=== PATIENT | female | born 1965 | race Caucasian/White ===

== ENCOUNTER → 2020-06-09 08:22 | Outpatient (CLI) | payer OTHER, SELFPAY ==
[2020-05-13 09:06] VITALS: BMI 34.7
--- NOTE | 2020-06-09 08:23 | BI_ITS ---
MAMMOGRAPHY - BILATERAL SCREENING REASON FOR EXAM: Female, 54 years old. Routine annual screening examination. PERTINENT HISTORY: Personal history of breast cancer. Prior right lumpectomy and radiation treatment. Occasional right lateral breast tenderness. Mother with breast cancer. TECHNIQUE: Digital bilateral breast valeri (3D mammographic acquisition) in the CC and MLO projections. 2-D mediolateral oblique (MLO) and craniocaudad (CC) views of both breasts were obtained. CAD: Full Field Digital Mammography with Computer Added Detection was performed. COMPARISON: Comparison is made with prior examination dated 11/30/2018. FINDINGS: Breast Composition: There are scattered areas of fibroglandular density. There are no dominant masses or suspicious calcifications. The patient is status post lumpectomy in the deep upper lateral aspect of the right breast. Postoperative scarring and postsurgical changes are seen at that site. This is unchanged. No other significant abnormalities are identified. There has been no significant change since the prior study. BI/SCREEN MAMM (CAD) W/VALERI BILAT IMPRESSION: Stable bilateral screening mammogram. Yearly follow-up mammogram recommended. (A) ASSESSMENT CATEGORY: BIRADS Category 2: Benign. A letter regarding these results will be sent to the patient by the facility within 30 days. Approximately 10% of breast cancers are not detected by mammography. A normal mammogram should not delay biopsy of a clinically suspicious abnormality. [id number] Electronically Signed: Quentin Lopez, at 9:37 EST , Service support ,
== END ==
PROVIDERS: PCP Family Medicine; Referring Provider Internal Medicine Medical Oncology; Visit Provider Internal Medicine Medical Oncology
DX: Z12.31 Encounter for screening mammogram for malignant neoplasm of breast (principal); Z85.3 Personal history of malignant neoplasm of breast; Z80.3 Family history of malignant neoplasm of breast
CPT/HCPCS: 77063; 77067

== ENCOUNTER → 2020-12-24 17:22 | Outpatient (CLI) | payer OTHER, SELFPAY ==
[2020-05-13 09:06] VITALS: BMI 34.7
--- NOTE | 2020-12-24 17:23 | CT_ITS ---
STUDY: CT CHEST WITH CONTRAST REASON FOR EXAM: Female, 55 years old. chest wall mass, h/o DCIS RADIATION DOSAGE (If Supplied By Facility): CTDIvol = ( 14.78 ) mGy, DLP = ( 546.88 ) mGycm TECHNIQUE: Transaxial imaging was performed following intravenous administration of 100 CC ISOVUE 300. Individualized dose optimization techniques were used for this CT. COMPARISON: None. FINDINGS: Within the soft tissues of the right breast in the chest wall, there appears to be postsurgical changes with fat containing lesion measuring 3.7 x 2.9 cm. Metallic densities are noted suggesting surgical clips. The lungs are normal. There is no demonstrated pleural abnormality. Normal heart and pericardium. Normal mediastinum. Normal hilar regions. Normal enhanced pulmonary arteries. Normal aorta arch and descending thoracic aorta. Normal osseous structures. There is no demonstrated abnormality of the visualized upper abdomen. CT/Chest WITH Contrast IMPRESSION: Lungs are clear. No evidence of pulmonary embolism. Right breast mass as above, likely residual postsurgical change. Recommend clinical correlation and review of any recent mammography. If there is no recent mammography, recommend mammogram to further evaluate Electronically Signed: Nehemiah Monroe DO at 2:08 EDT Tel , Service support ,
== END ==
PROVIDERS: PCP Family Medicine; Referring Provider Nurse Practitioner Family; Visit Provider Nurse Practitioner Family
DX: R22.2 Localized swelling, mass and lump, trunk (principal)
CPT/HCPCS: 71260; Q9967

== ENCOUNTER → 2021-01-05 08:47 | Outpatient (CLI) | payer OTHER, SELFPAY ==
[2020-05-13 09:06] VITALS: BMI 34.7
--- NOTE | 2021-01-05 08:50 | US_ITS ---
STUDY: ULTRASOUND BREAST - RIGHT REASON FOR EXAM: Female, 55 years old. Palpable lump in the right breast. TECHNIQUE: Axial and longitudinal images of the RIGHT breast were performed with a high resolution ultrasound transducer. # OF IMAGES: 60 COMPARISON: Comparison is made with prior mammogram done earlier in the day. FINDINGS: RIGHT Breast: At the operative site, there is a 2.6 cm x 3.8 sided by 2.4 cm heterogeneous area of altered echotexture most likely representing post lumpectomy changes. US/Breast Limited Unilateral IMPRESSION: Findings suggestive of post lumpectomy changes at the operative site at the 10 to 11 o''clock position breast at 4 cm from nipple. ASSESSMENT CATEGORY: BIRADS Category 2: Benign. A letter regarding these results will be sent to the patient by the facility within 30 days. Electronically Signed: Quentin Lopez MD at 11:08 EDT , Service support ,
--- NOTE | 2021-01-05 08:50 | BI_ITS ---
MAMMOGRAPHY - BILATERAL DIAGNOSTIC REASON FOR EXAM: Female, 55 years old. Prior right lumpectomy with radiation and chemotherapy. Mass seen on prior CT scan of the thorax. PERTINENT HISTORY: Personal history of breast cancer. Mother with breast cancer. TECHNIQUE: Digital bilateral breast alfredo (3D mammographic acquisition) in the CC and MLO projections. 2-D mediolateral oblique (MLO) and craniocaudad (CC) views of both breasts were obtained. CAD: Full Field Digital Mammography with Computer Added Detection was performed. COMPARISON: Comparison is made with prior study dated 06/09/2020. FINDINGS: Breast Composition: There are scattered areas of fibroglandular density. There are no dominant masses or suspicious calcifications. The patient is status post lumpectomy in the deep upper outer aspect of the right breast. This corresponds to a 3.2 cm x 3.8 cm density most likely postsurgical in nature. This is unchanged. No other significant abnormalities are identified. There has been no significant change since the prior study. BI/DIAG MAMM W/CAD, BILAT IMPRESSION: Stable bilateral diagnostic mammogram. Correlation with sonogram of the postoperative site in the right breast is recommended. ASSESSMENT CATEGORY: BIRADS Category 0: Incomplete. Need additional imaging evaluation. A letter regarding these results will be sent to the patient by the facility within 30 days. Approximately 10% of breast cancers are not detected by mammography. A normal mammogram should not delay biopsy of a clinically suspicious abnormality. Electronically Signed: Quentin Lopez MD at 10:34 EDT , Service support ,
== END ==
PROVIDERS: PCP Family Medicine; Referring Provider Nurse Practitioner Family; Visit Provider Nurse Practitioner Family
DX: D05.11 Intraductal carcinoma in situ of right breast (principal); N63.10 Unspecified lump in the right breast, unspecified quadrant
CPT/HCPCS: 76642; 77062; 77066; G0279

== ENCOUNTER → 2021-02-02 08:52 | Outpatient (CLI) | payer OTHER, SELFPAY ==
[2021-01-12 14:37] VITALS: BMI 35.2
[2021-01-26 08:35] VITALS: BMI 35.2
--- NOTE | 2021-02-02 08:54 | NM_ITS ---
CLINICAL: 55-year-old female with history of carcinoma of the breast and current complaint of right clavicular mass formation. WHOLE BODY 99m Tc MDP RADIONUCLIDE BONE SCINTIGRAPHY COMPARISON: CT of the chest report 12/24/2020 FINDINGS: Following the intravenous administration of 26.0 mCi of 99m Tc MDP, whole body bone images reveal: 1. Increased radiopharmaceutical concentration is defined in the upper cervical spine posteriorly on the left, mid cervical spine posteriorly on the right, the acromioclavicular and sternoclavicular compartments of both shoulders-symmetric in presentation, lateral glenohumeral compartment of the right shoulder, fifth lumbar vertebra posteriorly on the left, knee articulations bilaterally, posterior compartment of both ankles. 2. The remaining skeletal structures are scintigraphically unremarkable with normal-appearing renal images and urinary bladder activity identified. NM/Bone Scan Whole Body IMPRESSION: 1. The increase in radiopharmaceutical concentration observed in the cervical and lumbar spine, bilateral shoulders, right and left knees, ankles bilaterally is most consistent with degenerative arthritis. 2. Meticulous attention paid to the right proximal-distal clavicle demonstrates no evidence of abnormal increased radiopharmaceutical concentration on the current examination. There is no definitive typical scintigraphic evidence of diffuse axial skeletal metastatic disease. Electronically Signed: Danial Anderson DO at 9:31 EDT Tel , Service support ,
== END ==
PROVIDERS: PCP Family Medicine; Referring Provider Internal Medicine Medical Oncology; Visit Provider Internal Medicine Medical Oncology
DX: R22.2 Localized swelling, mass and lump, trunk (principal); D05.11 Intraductal carcinoma in situ of right breast
CPT/HCPCS: 78306; A9503

== ENCOUNTER → 2021-06-10 08:12 | Outpatient (CLI) | payer OTHER, SELFPAY ==
--- NOTE | 2021-06-10 08:13 | BI_ITS ---
MAMMOGRAPHY - BILATERAL SCREENING REASON FOR EXAM: Female, 55 years old. Routine annual screening examination. PERTINENT HISTORY: Personal history of breast cancer. Prior right lumpectomy with radiation therapy. Mother with breast cancer. TECHNIQUE: Digital bilateral breast valeri (3D mammographic acquisition) in the CC and MLO projections. 2-D mediolateral oblique (MLO) and craniocaudad (CC) views of both breasts were obtained. CAD: Full Field Digital Mammography with Computer Added Detection was performed. COMPARISON: Comparison is made with prior study dated 01/05/2021 and 06/09/2020. FINDINGS: Breast Composition: There are scattered areas of fibroglandular density. There are no dominant masses or suspicious calcifications. Once again, the patient is status post lumpectomy in the deep upper lateral aspect of the right breast. Postsurgical changes are seen. The previously seen nodule at the biopsy site has become less dense and has decreased slightly in size presently measuring 3.3 cm x 3.3 cm. No other significant abnormalities are identified. There has been no significant change since the prior study. BI/SCRN MAMM (CAD)W/VALERI BILAT IMPRESSION: Stable bilateral screening mammogram. Yearly follow-up mammogram recommended. (A) ASSESSMENT CATEGORY: BIRADS Category 2: Benign. A letter regarding these results will be sent to the patient by the facility within 30 days. Approximately 10% of breast cancers are not detected by mammography. A normal mammogram should not delay biopsy of a clinically suspicious abnormality. [id number] Electronically Signed: Quentin Lopez MD at 9:17 EST , Service support ,
== END ==
PROVIDERS: PCP Family Medicine; Referring Provider Internal Medicine Medical Oncology; Visit Provider Internal Medicine Medical Oncology
DX: Z12.31 Encounter for screening mammogram for malignant neoplasm of breast (principal); Z85.3 Personal history of malignant neoplasm of breast; Z80.3 Family history of malignant neoplasm of breast
CPT/HCPCS: 77063; 77067

== ENCOUNTER → 2022-07-19 | Outpatient (CLI) | payer OTHER, SELFPAY ==
--- NOTE | 2022-07-19 10:24 | BI_ITS ---
MAMMOGRAPHY - BILATERAL SCREENING REASON FOR EXAM: Female, 56 years old. Routine annual screening examination. PERTINENT HISTORY: Personal history of breast cancer. Prior right lumpectomy with radiation treatment. Remote right needle breast biopsy. TECHNIQUE: Digital bilateral breast valeri (3D mammographic acquisition) in the CC and MLO projections. 2-D mediolateral oblique (MLO) and craniocaudad (CC) views of both breasts were obtained. CAD: Full Field Digital Mammography with Computer Added Detection was performed. COMPARISON: Comparison is made with prior study dated 06/10/2021 and 01/05/2021. FINDINGS: Breast Composition: There are scattered areas of fibroglandular density. The patient is status post laminectomy in the deep upper lateral aspect of the left breast. Surgical clips are seen at the operative site. Evidence of postoperative calcifications. These have progressed as compared to prior study. No other significant abnormalities are identified. BI/SCRN MAMM (CAD)W/VALERI BILAT IMPRESSION: Since prior study, the microcalcifications at the operative site have increased in number. This may represent postoperative calcification. Biopsy is recommended. ASSESSMENT CATEGORY: BIRADS Category 4: Suspicious - Biopsy Should Be Considered. A letter regarding these results will be sent to the patient by the facility within 30 days. Approximately 10% of breast cancers are not detected by mammography. A normal mammogram should not delay biopsy of a clinically suspicious abnormality. [id number] Electronically Signed: Quentin Lopez MD at 12:22 EST ,
== END | disposition home or self-care (01) ==
PROVIDERS: PCP Family Medicine; Visit Provider Internal Medicine Medical Oncology
DX: Z12.31 Encounter for screening mammogram for malignant neoplasm of breast (principal)
CPT/HCPCS: 77063; 77067

== ENCOUNTER → 2022-08-23 | Outpatient (CLI) | payer OTHER, SELFPAY ==
--- NOTE | 2022-08-23 11:45 | BRBX_PTH ---
PATIENT: IRMA MAX LOC: [facility] U#:[id number] AGE/SX: 56/F ROOM: RE08/23/[address]: Dr. Jez Gomez MD : 1965 BED: DIS: 08/23/2022 SPEC #: [id number] RECD: 08/23/22 12:19 STATUS: BETSY FER #: [id number] PHILLIP: 08/23/22 11:[address]: Jez Gomez DEPT: SURGICAL PATHOLOGY RECD BY: Marli Yu ENTERED: 08/23/22 12:39 SP TYPE: BREAST BX OTHR DR: Soheila Valentin MD Tissues: Right breast, NOS Procedures: Surgery Specimen Level IV HEADER OPERATION: Right stereotactic needle core biopsy PRE-OP DIAGNOSIS: Microcalcifications deep upper lateral breast TISSUE SUBMITTED: Right breast ISCHEMIC TIME: 2 minutes FIXATION TIME: 7.5 hours MICROSCOPIC DIAGNOSIS Right breast, microcalcifications deep upper lateral breast, stereotactic core biopsy: Fibrosis, fat necrosis, chronic inflammation and dystrophic calcifications. Negative for atypia or malignancy. See comment. HAYLEE:antonio 08/24/2022 COMMENT Correlation with clinical, radiologic findings and appropriate follow up are necessary. MICROSCOPIC DESCRIPTION Slides are reviewed. GROSS DESCRIPTION Received in fixative is one container labeled with the patient's name and designated right breast. The specimen consists of multiple elongated fragments of crowell-yellow fibroadipose tissue that in aggregate measure 4.0 x 3.0 x 0.3 cm. The entire specimen is submitted in two cassettes. / HAYLEE:antonio 08/23/2022 TC:5 CPT: 08337
--- NOTE | 2022-08-23 17:35 | PRO.PCM_ITS ---
Procedure Report Date of Procedure: 08/23/22 Procedure name: Stereotactic biopsy of right breast Indication: Micro and macro calcifications in the upper/central portion of right breast (within prior surgical cavity from lumpectomy 2018) After obtaining written and verbal consent and reviewing the details of the procedure, patient was positioned on the mammography table. Licensed Vocational Nurse image was performed to identify the location of microcalcifications. Stereo images were obtained at plus and -15 degrees. With these images, the biopsy site was targeted just below the area to be sampled. Then the biopsy site was anesthetized with local anesthetic both at the skin and deeply along the biopsy tract. A skin melinda was made with an 11 blade to accommodate the 8 Indonesian mammotome core needle. The needle was advanced into this opening and the needle was fired. Post-firing images confirmed that we are in the vicinity of the calcifications. We then obtained 12 biopsies along the 360 degrees about the needle insertion site. The cores were then x-rayed and we confirmed the presence of microcalcifications in in the first 4 cores and the second to last core. Satisfied with this result, I placed a coil clip (to distinguish it from the surgical clips located more deeply towards the chest wall) at the biopsy site and confirmed it presence with another x-ray. This concluded the biopsy and the patient was allowed to sit upright while manual pressure was applied externally. She tolerated the procedure well without any apparent complication. She was given post-- procedure care instructions and we will follow up once pathology has resulted. EBL: 10 mL Procedures Integumentary [id number]: [id number] Bx breast 1st lesion [facility]
== END | disposition home or self-care (01) ==
PROVIDERS: PCP Internal Medicine; Visit Provider Surgery
DX: N60.31 Fibrosclerosis of right breast (principal); R92.0 Mammographic microcalcification found on diagnostic imaging of breast
CPT/HCPCS: 19081; 88305; J7050

== ENCOUNTER 2022-10-28 12:17 | Emergency (ER) | payer OTHER, SELFPAY ==
[2022-10-28 12:17] VITALS: BP 167/115; PULSE 103; RESP 18; TEMP 36.4; O2SAT 97; BMI 36.3
--- NOTE | 2022-10-28 12:28 | EDS_ITS ---
HPI <JAYLIN Craig - Last Filed: 10/28/22 14:36> History of Present Illness Chief Complaint: Lower Extremity Injury Narrative Narrative: Patient presenting today due to left-sided lower back pain that radiates down the back of her left lower extremity that she has had for the past week. She said it has worsened over the past few days and she has numbness in her left toes. Patient states that she had a similar episode occur a few years ago but it was not this severe. She denies any injury to her back or to her left leg. She denies any saddle paresthesia, fever, bowel/bladder incontinence, weakness in her lower extremities. [facility] <JAYLIN Craig - Last Filed: 10/28/22 14:36> [facility] Medical History Breast cancer, right breast Breast mass, right Chest wall mass Fusion of spine, cervical region H/O thyroid nodule Home Medications atorvastatin 40 mg tablet 40 mg PO QHS 05/09/20 [History Last Taken Unknown] docusate sodium 100 mg capsule 100 mg PO DAILY 05/09/20 [History Last Taken Unknown] lisinopril 10 mg tablet 10 mg PO DAILY 05/09/20 [History Last Taken Unknown] metformin 500 mg tablet,extended release 24 hr 500 mg PO DAILY 05/09/20 [History Last Taken Unknown] buspirone 5 mg tablet 5 mg PO DAILY 08/02/22 [History Last Taken Unknown] cholecalciferol (vitamin D3) 125 mcg (5,000 unit) capsule 125 mcg PO DAILY 08/02/22 [History Last Taken Unknown] ferrous sulfate 325 mg (65 mg iron) tablet (Feosol) 325 mg PO Q OTHER DAY 08/02/22 [History Last Taken Unknown] vitamin B complex (B Complex-Vitamin B12 tablet) 1 tab PO DAILY 08/02/22 [History Last Taken Unknown] hydrocodone-acetaminophen 5-325mg 5mg-325mg 1 tab PO Q6H PRN PRN Pain 4 days #10 TABLETS 10/28/22 [Rx Last Taken Unknown] naproxen 500 mg tablet (Naprosyn) 500 mg PO BID PRN pain #20 tabs 10/28/22 [Rx Last Taken Unknown] oxycodone-acetaminophen 5 mg-325 mg tablet (Endocet) 1 tab PO Q8H PRN pain 4 days #10 tabs 10/28/22 [Rx Last Taken Unknown] Allergy/AdvReac Type Severity Reaction Status Date / Time shellfish derived Allergy Unknown Anaphylaxis Verified 08/02/22 09:36 adhesive tape AdvReac Unknown PT UNSURE Verified 08/02/22 09:36 OF REACTION Surgical History H/O partial mastectomy H/O total hysterectomy Social History Smoking Status: Never smoker alcohol intake: current substance use type: does not use ROS <JAYLIN Craig - Last Filed: 10/28/22 14:36> ROS ED Constitutional Constitutional ED: Denies chills or fever(s) Cardiovascular Cardiovascular: Denies chest pain Respiratory/Chest Respiratory/Chest: Denies cough or dyspnea Gastrointestinal Gastrointestinal: Denies abdominal pain, nausea or vomiting Genitourinary Genitourinary ED: Denies dysuria or hematuria Musculoskeletal Musculoskeletal: Reports back pain; Denies neck pain Integumentary Denies abscess, Abrasions or rash Neurologic Neurologic: Denies weakness Psychiatric Psychiatric: Denies anxiety, depression, suicidal ideation or suicidal thoughts EXAM <JAYLIN Craig - Last Filed: 10/28/22 14:36> Physical Exam Const Vital Signs: 10/28/22 12:17 Temperature 97.6 F L Temperature Source Temporal Pulse Rate 103 H Respiratory Rate 18 Blood Pressure 167/115 H Blood Pressure Mean 132 Pulse Ox 97 Oxygen Delivery Method Room Air Positive well nourished, well developed and no apparent distress General Appearance ED: well developed HEENT Reports normocephalic and head/scalp atraumatic Mouth ED: Yes moist mucous membranes normal Eyes PERRL and EOMs intact bilaterally Neck full ROM and supple Chest Wall inspection of chest normal Resp normal respiratory effort and clear to auscultation bilaterally Cardio regular rate and regular rhythm GI soft to palpation, non-tender, non-distended and no masses Back/Spine normal ROM and normal to inspection Extremity normal to inspection and full ROM Extremity Narrative: DP pulses in her lower extremities are 2+ and equal bilaterally, sensation intact to light touch in the lower extremities bilaterally. Neuro oriented x3, CN's II-XII intact bilaterally, moves all extremities, no focal motor deficits and no sensory deficits noted Sensorium / Orientation: awake and alert Motor Exam: strength 5/5 throughout Psych mental status grossly normal and thought process normal Skin no rashes or lesions noted and no wounds <Dr. Jermaine Eduardo DO - Last Filed: 10/28/22 21:54> Physical Exam Const Vital Signs: 10/28/22 12:17 Temperature 97.6 F L Temperature Source Temporal Pulse Rate 103 H Respiratory Rate 18 Blood Pressure 167/115 H Blood Pressure Mean 132 Pulse Ox 97 Oxygen Delivery Method Room Air MDM <JAYLIN Craig - Last Filed: 10/28/22 14:36> [facility] Narrative Medical decision making narrative: EpiduralPatient presenting today with symptoms of sciatica on the left side that she has had since Tuesday. She has had a previous episode in the past, but it was not this severe. She has not seen her PCP for this. She is well-appearing and in no acute distress. Her strength is intact in her upper and lower extremities, I have considered cauda equina syndrome and abscess, however, this is not likely given patient's examination and history. She is able to ambulate without difficulty. She was given Decadron here. She will be given pain control for home and is to follow-up with her PCP. Do not feel that any imaging is necessary as patient did not have any trauma to her back. She will be discharged home in stable condition and is comfortable with plan. She has been given return instructions. <Dr. Jermaine Eduardo DO - Last Filed: 10/28/22 21:54> [facility] Treatment and Re-Evaluation :: ED attending note: I evaluated the patient in conjunction with the TANESHA. I agree with his/her statements and above findings. I have personally performed a face to face assessment of the patient and have reviewed the TANESHA Note. I performed a substantive portion of the visit including all aspects of the following. I personally saw the patient performed chart review, physical exam, reviewed labs, imaging (if obtained), and formulated a treatment and management plan. 57-year-old female here with left-sided hip back pain. No injury. Patient denies any saddle anesthesia, urinary tension, bowel or bladder incontinence, lower extremity weakness, fever or IV drug use, no recent spinal manipulation or surgery, no recent urinary catheterization. Exam: Nursing triage notes reviewed, Vital signs reviewed Constitutional: please see mdm HENT: MMM Eyes: Pupils equal round and reactive to light, Extraocular muscles intact Neck: No stridor, no JVD, full neck ROM Lungs: Clear to auscultation, No wheezing or rales. No increased work of breathing, no conversational dyspnea, no accessory muscle use, no nasal flaring. No respiratory distress noted Heart: Regular rate and rhythm, No murmurs, No rubs and No gallops, 2+ distal pulses (radial, femoral, posterior tibial) in all extremities Abdomen: Soft, there is no tenderness, rigidity, rebound or guarding, no obvious peritoneal signs, no palpable pulsatile abdominal masses, no auscultated abdominal bruit : No CVAT Extremities: No edema Neuro: Intact sensation L1-S1 dermatomal distributions. Intact 5/5 strength in hip flexion (T12-L3). Knee extension (L2-L4). Ankle dorsiflexion (L4-L5). Ankle plantar flexion (S1). Great toe extension (L5). 2+ patellar and Achilles DTRs. Skin: No rash or lesions noted MDM/plan: Chief Complaint: Back pain External records reviewed: No recent advanced imaging of the axial skeleton noted I considered the following differential diagnosis: Epidural abscess, space- occupying region of spine, cauda equina, musculoskeletal back pain, lumbar radiculopathy The patient presented complaining of back pain. There was no history of recent fall or trauma. There was no evidence to support genitourinary etiology. There is also no evidence to suggest vascular pathology such as AAA dissection. No fevers or other evidence to suspect infectious processes, abscess, osteomyelitis etc. The patient?s neurological exam is normal with normal motor and sensory. There is no saddle paresthesias reported and no bowel or bladder incontinence or retention. I suspect the pain is mechanical in nature. Clinical suspicion, plan of care and management was discussed with the patient. The patient was instructed to follow up with their health care provider. The patient was also instructed to return if the pain worsened, changed, or developed weakness or bowel or bladder trouble. The patient agreed with plan. I completed a structured, evidence-based clinical evaluation to screen for acute non-traumatic spinal emergencies. The patient has a normal detailed neurologic exam and red flag historical factors were negative. The evidence indicates that the patient is very low risk for an acute spinal emergency and this is consistent with my clinical intuition. The risk of further workup is higher than the likelihood of the patient having a spinal epidural abscess or other dangerous emergency spinal condition. It is, therefore, in the patient?s best interest not to do additional emergent testing at this time. Shared Decision-Making I have discussed with the patient my clinical impression and the result of an evidence-based clinical evaluation to screen for spinal epidural abscess and other spinal emergencies, as well as the risk of further testing and hospitalization. The evidence shows that the risk for an acute spinal emergency is less than 1%. Although the risk of an acute spinal emergency has not been completely eliminated, the risks of further testing likely exceed any potential benefit, and the patient agrees with not pursuing further emergent evaluation for causes of back pain at this time. Factors affecting care: Breast cancer Social determinants of health: Never smoker History obtained from others: Consults: None Discharge Plan Triage Chief Complaint: Lower Extremity Injury ED Midlevel Provider: Saba Bear ED Provider: Jermaine Eduardo Dx/Rx/DC Orders Clinical Impression: Sciatica of left side Instructions: ED Sciatica Prescriptions: New naproxen [Naprosyn] 500 mg tablet 500 mg PO BID PRN (Reason: pain) Qty: 20 0RF hydrocodone-acetaminophen 5-325 mg tablet 1 tab PO Q6H PRN PRN (Reason: Pain) 4 Days Qty: 10 0RF oxycodone-acetaminophen [Endocet] 5-325 mg tablet 1 tab PO Q8H PRN (Reason: pain) 4 Days Qty: 10 0RF No Action buspirone 5 mg tablet 5 mg PO DAILY cholecalciferol (vitamin D3) 125 mcg (5,000 unit) capsule 125 mcg PO DAILY ferrous sulfate [Feosol] 325 mg (65 mg iron) tablet 325 mg PO Q OTHER DAY vitamin B complex [B Complex-Vitamin B12] Tablet 1 tab PO DAILY atorvastatin 40 MG tablet 40 mg PO QHS lisinopril 10 MG tablet 10 mg PO DAILY docusate sodium 100 MG capsule 100 mg PO DAILY metformin 500 MG tablet extended release 24 hr 500 mg PO DAILY Primary Care Provider: Soheila Valentin Referrals: Soheila Valentin MD [Primary Care Provider] - 3-5 Days Activity Restrictions/Additional Instructions: Please follow-up with your PCP and return for any worsening symptoms. Disposition Disposition: Home, Self Care Discharge Date/Time: 10/28/22 13:46
[2022-10-28] MEDS: dexAMETHasone 4 MG Tablet 6 MG PO (13:42)
== END 2022-10-28 13:46 | disposition home or self-care (01) ==
PROVIDERS: Emergency Provider Emergency Medicine; PCP Internal Medicine; Visit Provider Emergency Medicine
DX: M54.32 Sciatica, left side (principal); C50.911 Malignant neoplasm of unspecified site of right female breast; Z79.899 Other long term (current) drug therapy
CPT/HCPCS: 99283

== ENCOUNTER → 2023-07-20 | Outpatient (CLI) | payer OTHER, SELFPAY ==
--- NOTE | 2023-07-20 10:30 | BI_ITS ---
MAMMOGRAPHY - BILATERAL SCREENING REASON FOR EXAM: Female, 57 years old. Routine annual screening examination. PERTINENT HISTORY: Personal history of breast cancer. Prior right lumpectomy with radiation treatment and prior right stereotactic breast biopsy. Mother with breast cancer. TECHNIQUE: Digital bilateral breast valeri (3D mammographic acquisition) in the CC and MLO projections. 2-D mediolateral oblique (MLO) and craniocaudad (CC) views of both breasts were obtained. CAD: Full Field Digital Mammography with Computer Added Detection was performed. COMPARISON: Comparison is made with prior examination dated July 19, 2022 and June 10, 2021. FINDINGS: Breast Composition: There are scattered areas of fibroglandular density. There are no dominant masses or suspicious calcifications. Once again, the patient is status post lumpectomy in the deep upper lateral aspect of the right breast with resultant postoperative scarring. There is also evidence of a calcifications at the operative site in keeping with dystrophic calcification. No other significant abnormalities are identified. There has been no significant change since the prior study. BI/SCRN MAMM (CAD)W/VALERI BILAT IMPRESSION: Stable bilateral screening mammogram. Yearly follow-up mammogram recommended. (A) ASSESSMENT CATEGORY: BIRADS Category 2: Benign. A letter regarding these results will be sent to the patient by the facility within 30 days. Approximately 10% of breast cancers are not detected by mammography. A normal mammogram should not delay biopsy of a clinically suspicious abnormality. [id number] Electronically Signed: Quentin Lopez MD at 10:13 EST ,
--- OUTSIDE RECORDS SUMMARY | 2023-07-20 11:57 | XMS RPT_ITS | CCD ---
Author Name Unknown Address [id number] [place] [address] Organization [facility] Care Team Providers Care Supply Chain Development Manager Name Role Phone Unavailable Unavailable Unavailable SHARIF, JOSEPHINE E Unavailable Unavailable SHARIF, JOSEPHINE E Unavailable Unavailable NO, DOCTOR ON Unavailable Unavailable SHARIF, JOSEPHINE E Unavailable Unavailable NO, DOCTOR ON Unavailable Unavailable Tasha Bojorquez Unavailable Unavailable Tasha Bojorquez Unavailable Unavailable Longsdorf, June Barbara Unavailable Unavai lable Tasha Bojorquez Unavailable Unavailable Longsdorf, June Barbara Unavailable Unavai lable Pitkin, Franco A Unavailable Unavailable Pitkin, Franco A Unavailable Unavailable Longsdorf, June Unavailable Unavailable Longsdorf, June Unavailable Unavailable VLADISLAV KENT Unavailable Unavailable HARRELL, WENHUI Unavailable Unavailable HARRELL, WENHUI Unavailable Unavailable KATELÍAS PAULSONALD Unavailable Unavailable KATELÍAS PAULSONALD Unavailable Unavailable KATLORENE VLADISLAV Unavailable Unavailable Unavailable Primary Care Provider Unavailabl e Longsdorf, June Unavailable Unavailable Longsdorf, June A Unavailable Unavailab Candelaria León Unavailable Unavailable Longsdorf, June Unavailable Unavailable Monica Carrasco Unavailable Unavailable Longsdorf, June A Unavailable Unavailab June Saldaña Primary Care Provider Ruth June A Unavailable Unavailable Unavailable June Miranda MD Primary Care Provid er Soheila Tom MD Primary Care Provider Soheila Tom MD Unavailable Soheila Tom MD Primary Care Provider Vaishali MD, Soheila Unavailable Vaishali MD, Soheila Unavailable Vaishali MD, Soheila Primary Care Provider Vaishali , Soheila Unavailable VAISHALI, SOHEILA Referring Unavailable VAISHALI, SOHEILA Attending Unavailable VAISHALI, SOHEILA Primary Care Unavailable Alex ROWLAND, Koko Ledbetterste Unavailable [phone] DB YBARRA Attending Unavailable VAISHALI, SOHEILA Primary Care Unavailable VAISHALI, SOHEILA Attending Unavailable VAISHALI, SOHEILA Primary Care Unavailable VAISHALI, SOHEILA Attending Unavailable VAISHALI, SOHEILA Primary Care Unavailable VAISHALI, SOHEILA Attending Unavailable VAISHALI, SOHEILA Primary Care Unavailable BRUNICARDI, KOKO PADILLA Attending Unavail able VAISHALI, SOHEILA Primary Care Unavailable VAISHALI, SOHEILA Attending Unavailable VAISHALI, SOHEILA Primary Care Unavailable VAISHALI, SOHEILA Attending Unavailable VAISHALI, SOHEILA Primary Care Unavailable VAISHALI, SOHEILA Primary Care Unavailable BRUNICARDI, KOKO PADILLA Admitting Unavail able MAURO LEROY Attending Unavailable BRUNICARDI, KOKO PADILLA Referring Unavail able BRUNICARDI, KOKO PADILLA Referring Unavail able VAISHALI, SOHEILA Primary Care Unavailable PATOICARDI, KOKO PADILLA Admitting Unavail able SAURABH HOOVER Attending Unavailable BRUNICARDI, KOKO PADILLA Admitting Unavail able VAISHALI, SOHEILA Primary Care Unavailable AMBREEN MARVIN Attending Unavailable BRUNICARDI, KOKO PADILLA Referring Unavail able BRUNICARDI, KOKO PADILLA Admitting Unavail able VAISHALI, SOHEILA Primary Care Unavailable BRUNICARDI, KOKO PADILLA Referring Unavail able SAURABH HOOVER Attending Unavailable VAISHALI, SOHEILA Primary Care Unavailable GAVIN MCNEIL Attending Unavailable TEJAL HOLLAND Attending Unavailable BRUNICARDI, KOKO PADILLA Referring Unavail able VAISHALI, SOHEILA Primary Care Unavailable BRUNICARDI, KOKO PADILLA Admitting Unavail able LUPILLO LEMUS Referring Unavailable Allergies Allergy Classification Reported Allergen(s) Allergy Type Date of Onset Reaction(s) Facility Fish (8 sources) fish, unspecified; Translations: [Shellfish] Food Allergy Anaphylaxis [facility] nicole Work Phone: (7 sources) fish, unspecified allergy to substance Anaphylaxis [facility] Work Phone: (9 sources) Adhesive bandage; Translations: [Adhesive Bandages] drug allergy Unknown [facility] Work Phone: (5 sources) shellfish, unspecified allergy to substance Anaphylaxis [facility] Work Phone: (4 sources) shrimp, unspecified; Translations: [SHRIMP] allergy to substance 1 [facility] (20 sources) Shellfish; Translations: [SHELLFISH DERIVED] Propensity to adverse reactions to drug 0 Other (See Comments) [facility] (20 sources) shrimp allergenic extract Drug Allergy 1 Anaphylaxis [facility] (20 sources) Adhesive Tape-Silicones; Translations: [ADHESIVE TAPE-SILICONES] Propensity to adverse reactions to drug 0 [facility] (20 sources) Fish,Bora,Flax Oils-Om3,6,9no1 ; Translations: [FISH,BORA,FLAX OILS-OM3,6,9NO1 ] Propensity to adverse reactions to drug 1 [facility] (20 sources) Shellfish Containing Products; Translations: [SHELLFISH CONTAINING PRODUCTS] Propensity to adverse reactions to drug 0 [facility] Medications Current Medications Medication Drug Class(es) Dates Sig (Normalized) Sig (Original) [id number] 200 actuat albuterol 0.09 mg/actuat metered dose inhaler (20 sources) beta2-Adrenergic Agonist Start: 07-30-2020 take 2 puff(s) by inhalation every four hours as needed for wheezing albuterol (ProAir HFA) 90 mcg/actuation inhaler Inhale 2 (two) puffs every 4 (four) hours as needed for wheezing or shortness of breath . 6.7 g 0 07/30/2020 Active Completed/Discontinued Medications Medication Drug Class(es) Dates Sig (Normalized) Sig (Original) acetaminophen 325 mg oral tablet (1 source) Start: 07-28-2020 End: 07-30-2020 take 1 tablet by mouth every four hours as needed 650 mg, Oral, Every 4 hours PRN, mild pain, fever 100.4 F or greater, headaches, Starting Tue07/28/20 at 2050 albuterol 0.833 mg/ml / ipratropium bromide 0.167 mg/ml inhalant solution (1 source) Anticholinergic, beta2-Adrenergic Agonist Start: 07-28-2020 End: 07-30-2020 take 3 mL by inhalation every two hours as needed 3 mL, Inhalation, Every 2 hour PRN (RT), wheezing, Starting Tue07/28/20 at 2050 albuterol 90 mcg/actuation inhaler (1 source) End: 07-28-2020 albuterol 90 mcg/actuation inhaler Inhale . 0 07/28/2020 Discontinued (Error) ALPRAZolam 0.5 mg oral tablet (1 source) Benzodiazepine Start: 07-28-2020 End: 07-30-2020 take 0.5 mg by mouth three times daily as needed for anxiety 0.5 mg, Oral, 3 times daily PRN, anxiety, sleep, Starting Tue07/28/20 at 2050 azithromycin 250 mg oral tablet (1 source) Macrolide Antimicrobial Start: 07-04-2020 take 1 tablet by mouth once Azithromycin 250 MG Oral Tablet TAKE DIRECTED PER PACKAGE INSTRUCTIONS. Quantity: 1 Refills: 0 June Miranda MD Start : 04-Jul-2020 Active 6 Tablet Pack bisacodyl 5 mg delayed release oral tablet (1 source) Stimulant Laxative Start: 07-28-2020 End: 07-30-2020 take 5 mg by mouth once daily as needed for constipation 5 mg, Oral, Nightly PRN, constipation, Starting Tue07/28/20 at 2050 DO NOT CRUSH OR CHEW. Bupivacaine (2 sources) Amide Local Anesthetic Start: 07-06-2021 End: 07-06-2021 bupivacaine HCl (MARCAINE) 0.5 % (5 mg/mL) injection 1 mL carvedilol 12.5 mg oral tablet (1 source) alpha-Adrenergic Yaneli, beta-Adrenergic Yaneli End: 07-28-2020 take 1 tablet by mouth twice daily carvediloL (COREG) 12.5 MG tablet Take 12.5 mg by mouth 2 (two) times a day . 0 07/28/2020 Discontinued (Error) ciprofloxacin 500 mg oral tablet (1 source) Quinolone Antimicrobial Start: 06-26-2019 take 1 tablet by mouth twice daily Ciprofloxacin HCl - 500 MG Oral Tablet Take 1 tablet twice daily Quantity: 6 Refills: 0 June Miranda MD Start : 26-Jun-2019 Active Drug or medicament (substance) (3 sources) End: 09-07-2021 Problems Active Problems Problem Classification Problem Date Documented Da te Episodic/Chronic Anxiety disorders (20 sources) Anxiety; Translations: [Anxiety state, unspecified] Onset: 2 Chronic Aortic; peripheral; and visceral artery aneurysms (7 sources) Aneurysm of ascending aorta; Translations: [Dilatation of aorta] Chronic Cancer of breast (11 sources) Intraductal carcinoma in situ of breast; Translations: [Carcinoma in situ of breast] Chronic Cardiac and circulatory congenital anomalies (20 sources) Abnormality of aortic arch; 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] Onset: 1 07-29-2020 Chronic Diabetes mellitus without complication (5 sources) Type 2 diabetes mellitus; Translations: [Type 2 diabetes mellitus without complications] Onset: 1 07-28-2020 Chronic Diabetes mellitus without complication (9 sources) Prediabetes; Translations: [Other abnormal glucose] Episodic Disorders of lipid metabolism (20 sources) Hyperlipidemia; Translations: [Other and unspecified hyperlipidemia] Onset: 2 09-07-2021 Chronic Esophageal disorders (8 sources) Gastroesophageal reflux disease; Translations: [Esophageal reflux] Chronic Essential hypertension (20 sources) Hypertensive disorder; Translations: [Unspecified essential hypertension] Onset: 1 07-28-2020 Chronic Headache; including migraine (20 sources) Migraine; Translations: [Migraine, unspecified, without mention of intractable migraine without mention of status migrainosus] Onset: 2 09-07-2021 Chronic Malaise and fatigue (20 sources) Chronic fatigue syndrome; Translations: [Chronic fatigue, unspecified] Onset: 2 10-26-2021 Chronic Nutritional deficiencies (20 sources) Vitamin D deficiency; Translations: [Vitamin D deficiency, unspecified] Onset: 2 Chronic Osteoarthritis (11 sources) Osteoarthritis; Translations: [Osteoarthrosis, unspecified whether generalized or localized, site unspecified] Chronic Other acquired deformities (1 source) Spondylolisthesis, lumbar region; Translations: [Spondylolisthesis, lumbar region] Onset: 4 Episodic Other circulatory disease (2 sources) H/O: hypertension; Translations: [History of hypertension] Episodic Other connective tissue disease (2 sources) Pain in left foot; Translations: [Pain in left foot] Episodic Other connective tissue disease (2 sources) Trochanteric bursitis, left hip; Translations: [Trochanteric bursitis, left hip] Onset: 3 Episodic Other gastrointestinal disorders (3 sources) Personal history of other diseases of the digestive system; Translations: [History of gastroesophageal reflux (GERD)] Episodic Other non-traumatic joint disorders (3 sources) Decreased range of shoulder movement; Translations: [Decreased range of motion of right shoulder] Onset: 7 09-14-2016 Chronic Other nutritional; endocrine; and metabolic disorders (20 sources) Body mass index 30+ - obesity; Translations: [Body Mass Index 33.0-33.9, adult] Onset: 1 07-28-2020 Chronic Other nutritional; endocrine; and metabolic disorders (1 source) Obesity; Translations: [Obesity, unspecified] Chronic Other nutritional; endocrine; and metabolic disorders (20 sources) Disorder of carbohydrate metabolism; Translations: [Other disorders of intestinal carbohydrate absorption] Onset: 1 Chronic Other nutritional; endocrine; and metabolic disorders (3 sources) H/O: metabolic disorder; Translations: [History of high cholesterol] Episodic Other upper respiratory infections (1 source) Acute sinusitis; Translations: [Acute sinusitis] Episodic Paralysis (3 sources) Weakness of right arm; Translations: [Weakness of right arm] Onset: 7 09-14-2016 Residual codes; unclassified (20 sources) Obstructive sleep apnea syndrome; Translations: [Obstructive sleep apnea (adult)(pediatric)] 09-07-2021 Chronic Residual codes; unclassified (8 sources) Past history of procedure; Translations: [Other specified personal history presenting hazards to health] Episodic Past or Other Problems Problem Classification Problem Date Documented Da te Episodic/Chronic Nonmalignant breast conditions (11 sources) Mammographic calcification of breast; Translations: [Other (abnormal) findings on radiological examination of breast] Resolved: 08-05-2020 Episodic Other connective tissue disease (8 sources) Other symptoms and signs involving the musculoskeletal system; Translations: [Other musculoskeletal symptoms referable to limbs] Onset: 09-14-2016 09-14-2016 Episodic Other connective tissue disease (8 sources) Pain in toe; Translations: [Pain in joint, ankle and foot] Resolved: 05-11-2021 Episodic Other connective tissue disease (20 sources) Weakness of right arm; Translations: [Other symptoms and signs involving the musculoskeletal system] Onset: 09-14-2016 09-14-2016 Episodic Other connective tissue disease (11 sources) Muscle spasm of cervical muscle of neck; Translations: [Other muscle spasm] Onset: 09-01-2022 Episodic Other connective tissue disease (4 sources) Other muscle spasm; Translations: [Other muscle spasm] Onset: 09-01-2022 Episodic Other gastrointestinal disorders (20 sources) Dysphagia; Translations: [Dysphagia, unspecified] Onset: 10-09-2021 Episodic Other gastrointestinal disorders (20 sources) Heartburn; Translations: [Heartburn] Onset: 11-02-2021 Episodic Other lower respiratory disease (8 sources) H/O: respiratory disease; Translations: [Personal history of other diseases of respiratory system] Resolved: 01-17-2020 Episodic Other lower respiratory disease (20 sources) Dyspnea; Translations: [Shortness of breath] Onset: 07-28-2020 07-28-2020 Episodic Other lower respiratory disease (2 sources) Pleurodynia; Translations: [Pleurodynia] Onset: 07-28-2020 Episodic Other non-traumatic joint disorders (20 sources) Stiffness of right shoulder, not elsewhere classified; Translations: [Shoulder pain] Onset: 09-14-2016 09-14-2016 Episodic Other non-traumatic joint disorders (20 sources) Shoulder pain; Translations: [Pain in right shoulder] Onset: 09-14-2016 09-14-2016 Episodic Other non-traumatic joint disorders (1 source) Pain in right shoulder; Translations: [Pain in joint, shoulder region] Onset: 09-14-2016 09-14-2016 Episodic Other non-traumatic joint disorders (1 source) Pain in left shoulder; Translations: [Pain in joint, shoulder region] Onset: 01-19-2017 01-19-2017 Episodic Other skin disorders (8 sources) Skin lesion; Translations: [Unspecified disorder of skin and subcutaneous tissue] Resolved: 05-11-2021 Episodic Otitis media and related conditions (20 sources) Acute and subacute allergic otitis media (mucoid) (sanguinous) (serous), right ear; Translations: [Acute mucoid otitis media] Onset: 09-09-2021 Episodic Residual codes; unclassified (1 source) History of clinical finding in subject; Translations: [Personal history of other specified diseases] Resolved: 05-11-2021 Episodic Residual codes; unclassified (20 sources) Memory impairment; Translations: [Other amnesia] Onset: 10-09-2021 Episodic Spondylosis; intervertebral disc disorders; other back problems (20 sources) Neck pain; Translations: [Cervicalgia] Onset: 01-19-2017 01-19-2017 Episodic Unclassified (5 sources) History of thoracic surgery; Translations: [Status post right breast lumpectomy] Unclassified (5 sources) Patient encounter status; Translations: [History of Screening for colorectal cancer] NEGATED: Highlighted row has not occurred!Residual codes; unclassified (15 sources) Disease Episodic Results Test Name Value Interpretation Reference Range Facil ity Vital Signs Date Time Vital Sign Value Performing Clinician Facility 09-01-2022 17:22-0400 Body temperature 98.29 [degF] Soheila Tom MD Work Phone: [facility] 09-01-2022 17:22-0400 Diastolic blood pressure 92 mm[Hg] Soheila Tom MD Work Phone: [facility] 09-01-2022 17:22-0400 Heart rate 73 /min Soheila Tom MD Work Phone: [facility] 09-01-2022 17:22-0400 Respiratory rate 16 /min Soheila Tom MD Work Phone: [facility] 09-01-2022 17:22-0400 SaO2% (BldA) [Mass fraction] 97 % Soheila Tom MD Work Phone: [facility] 09-01-2022 17:22-0400 Systolic blood pressure 126 mm[Hg] Soheila Tom MD Work Phone: [facility] 09-01-2022 17:14-0400 Body height 162.6 cm Soheila Tom MD Work Phone: [facility] 09-01-2022 17:14-0400 Body mass index (BMI) [Ratio] 36.01 kg/m2 Soheila Tom MD Work Phone: [facility] 09-01-2022 17:14-0400 Body weight 95.17 kg Soheila Tom MD Work Phone: [facility] 12-28-2021 09:21-0400 Body temperature 98.71 [degF] Phillip Iverson RN [facility] 12-28-2021 09:21-0400 Diastolic blood pressure 86 mm[Hg] Phillip Iverson RN [facility] 12-28-2021 09:21-0400 Heart rate 75 /min Phillip Iverson RN [facility] 12-28-2021 09:21-0400 Respiratory rate 16 /min Phillip Iverson RN [facility] 12-28-2021 09:21-0400 SaO2% (BldA) [Mass fraction] 96 % Phillip Iverson RN [facility] 12-28-2021 09:21-0400 Systolic blood pressure 135 mm[Hg] Phillip Iverson RN [facility] 12-15-2021 18:15-0400 Body mass index (BMI) [Ratio] 36.58 kg/m2 Soheila Tom MD Work Phone: [facility] 12-15-2021 18:15-0400 Body temperature 98.2 [degF] Soheila Tom MD Work Phone: [facility] 12-15-2021 18:15-0400 Body weight 96.66 kg Soheila Tom MD Work Phone: [facility] 12-15-2021 18:15-0400 Diastolic blood pressure 82 mm[Hg] Soheila Tom MD Work Phone: [facility] 12-15-2021 18:15-0400 Heart rate 84 /min Soheila Tom MD Work Phone: [facility] 12-15-2021 18:15-0400 Respiratory rate 18 /min Soheila Tom MD Work Phone: [facility] 12-15-2021 18:15-0400 SaO2% (BldA) [Mass fraction] 98 % Soheila Tom MD Work Phone: [facility] 12-15-2021 18:15-0400 Systolic blood pressure 151 mm[Hg] Soheila Tom MD Work Phone: [facility] 11-02-2021 08:38-0400 Body height 162.6 cm Alexey Kim MD Work Phone: [facility] 11-02-2021 08:38-0400 Body mass index (BMI) [Ratio] 36.13 kg/m2 Alexey Kim MD Work Phone: [facility] 11-02-2021 08:38-0400 Body weight 95.48 kg Alexey Kim MD Work Phone: [facility] 11-02-2021 08:38-0400 Diastolic blood pressure 84 mm[Hg] Alexey Kim MD Work Phone: [facility] 11-02-2021 08:38-0400 Heart rate 60 /min Alexey Kim MD Work Phone: [facility] 11-02-2021 08:38-0400 Respiratory rate 16 /min Alexey Kim MD Work Phone: [facility] 11-02-2021 08:38-0400 SaO2% (BldA) [Mass fraction] 96 % Alexey Kim MD Work Phone: [facility] 11-02-2021 08:38-0400 Systolic blood pressure 124 mm[Hg] Alexey Kim MD Work Phone: [facility] 10-05-2021 15:23-0400 Diastolic blood pressure 104 mm[Hg] Soheila Tom MD Work Phone: [facility] 10-05-2021 15:23-0400 Heart rate 82 /min Soheila Tom MD Work Phone: [facility] 10-05-2021 15:23-0400 Systolic blood pressure 150 mm[Hg] Soheila Tom MD Work Phone: [facility] 10-05-2021 15:21-0400 Body height 162.6 cm Soheila Tom MD Work Phone: [facility] 10-05-2021 15:21-0400 Body mass index (BMI) [Ratio] 35.53 kg/m2 Soheila Tom MD Work Phone: [facility] 10-05-2021 15:21-0400 Body temperature 97.59 [degF] Soheila Tom MD Work Phone: [facility] 10-05-2021 15:21-0400 Body weight 93.89 kg Soheila Tom MD Work Phone: [facility] 10-05-2021 15:21-0400 Respiratory rate 16 /min Soheila Tom MD Work Phone: [facility] 10-05-2021 15:21-0400 SaO2% (BldA) [Mass fraction] 95 % Soheila Tom MD Work Phone: [facility] 09-07-2021 08:38-0400 Body height 162.6 cm Soheila Tom MD Work Phone: [facility] 09-07-2021 08:38-0400 Body mass index (BMI) [Ratio] 35.19 kg/m2 Soheila Tom MD Work Phone: [facility] 09-07-2021 08:38-0400 Body temperature 98.01 [degF] Soheila Tom MD Work Phone: [facility] 09-07-2021 08:38-0400 Body weight 92.99 kg Soheila Tom MD Work Phone: [facility] 09-07-2021 08:38-0400 Diastolic blood pressure 74 mm[Hg] Soheila Tom MD Work Phone: [facility] 09-07-2021 08:38-0400 Heart rate 83 /min Soheila Tom MD Work Phone: [facility] 09-07-2021 08:38-0400 Respiratory rate 16 /min Soheila Tom MD Work Phone: [facility] 09-07-2021 08:38-0400 SaO2% (BldA) [Mass fraction] 96 % Soheila Tom MD Work Phone: [facility] 09-07-2021 08:38-0400 Systolic blood pressure 109 mm[Hg] Soheila Tom MD Work Phone: [facility] 07-27-2021 11:19-0500 Diastolic blood pressure 84 mm[Hg] Karma Laredo DPM Work Phone: [facility] 07-27-2021 11:19-0500 Systolic blood pressure 128 mm[Hg] Karma Laredo DPM Work Phone: [facility] 07-27-2021 11:17-0500 Body temperature 98.6 [degF] Karma Laredo DPM Work Phone: [facility] 07-27-2021 11:17-0500 Heart rate 80 /min Karma Laredo DPM Work Phone: [facility] 07-06-2021 15:15-0500 Body temperature 98.49 [degF] Karma Marilu DPM Work Phone: [facility] 07-06-2021 15:15-0500 Diastolic blood pressure 86 mm[Hg] Karma Marilu DPM Work Phone: [facility] 07-06-2021 15:15-0500 Heart rate 81 /min Karma Marilu DPM Work Phone: [facility] 07-06-2021 15:15-0500 Systolic blood pressure 125 mm[Hg] Karma Marilu DPM Work Phone: [facility] 05-11-2021 11:43-0500 Body height 167 cm June Miranda Work Phone: [facility] Work Phone: 05-11-2021 11:43-0500 Body mass index (BMI) [Ratio] 33.6 kg/m2 June Miranda Work Phone: [facility] Work Phone: 05-11-2021 11:43-0500 Body surface area Derived from formula 2.02 m2 June Miranda Work Phone: [facility] Work Phone: 05-11-2021 11:43-0500 Body temperature 98.4 [degF] June Miranda Work Phone: [facility] Work Phone: 05-11-2021 11:43-0500 Body weight 93.7 kg June Miranda Work Phone: [employer] Work Phone: 05-11-2021 11:43-0500 Diastolic blood pressure 90 mm[Hg] June Miranda Work Phone: [employer] Work Phone: 05-11-2021 11:43-0500 Heart rate 80 /min June Miranda Work Phone: [facility] Work Phone: 05-11-2021 11:43-0500 SaO2% (BldA) [Mass fraction] 98 % June Miranda Work Phone: [facility] Work Phone: 05-11-2021 11:43-0500 Systolic blood pressure 148 mm[Hg] June Miranda Work Phone: [facility] Work Phone: 07-30-2020 11:09-0500 Body Temperature 98.49 [degF] Grant Naranjo [facility] 07-30-2020 11:09-0500 BP [facility] 90 mm[facility]Hg[facility] 11:09-0500 BP Systolic 146 mm[Hg] [facility] 07-30-2020 11:09-0500 Pulse (Heart Rate) 80 /min [facility] 07-30-2020 11:09-0500 Pulse Oximetry 96 % Grant [facility] 07-30-2020 04:20-0500 Respiratory Rate 16 /min [facility] 07-28-2020 16:49-0500 Respiratory rate 0 /min [facility] 07-28-2020 16:17-0500 BMI (Body Mass Index) 32.96 kg/m2 [facility] 07-28-2020 16:17-0500 Body weight 87.09 kg Grant [facility] 07-28-2020 16:17-0500 Height 162.6 cm Grant [facility] 07-05-2020 19:54-0500 BP Diastolic 72 mm[Hg] [facility] 07-05-2020 19:54-0500 BP Systolic 131 mm[Hg] [facility] 07-05-2020 19:54-0500 Pulse (Heart Rate) 66 /min [facility] 07-05-2020 19:54-0500 Pulse Oximetry 100 % Grant [facility] 07-05-2020 19:54-0500 Respiratory Rate 18 /min [facility] 07-05-2020 17:54-0500 BMI (Body Mass Index) 32.44 kg/m2 [facility] 07-05-2020 17:54-0500 Body Temperature 98.8 [degF] Grant [facility] 07-05-2020 17:54-0500 Body weight 85.[address] [facility] 07-05-2020 17:54-[address] [facility] 06-26-2019 17:18-0500 BMI (Body Mass Index) 34.42 kg/m2 June Miranda -[facility] Work Phone: 06-26-2019 17:18-0500 Body weight 96 kg June Miranda [facility] Work Phone: 06-26-2019 17:18-0500 BP Diastolic 90 mm[Hg] June Miranda [facility] Work Phone: 06-26-2019 17:18-0500 BP Systolic 138 mm[Hg] June Miranda [facility] Work Phone: 06-26-2019 17:18-0500 BSA (Body Surface Area) 2.04 m2 [facility]: 06-26-2019 17:18-0500 Height 167 cm June Miranda [facility] Work Phone: 06-26-2019 17:18-0500 Pulse (Heart Rate) 68 /min June Miranda [facility] Work Phone: Encounters Encounter Date Encounter Type Care Provider Facility Start: 07-11-2023 ambulatory [facility] Radha [place] Facility :[id number] Start: 05-26-2023 ambulatory SOHEILA TOM [facility] Ambulatory Start: 05-19-2023 End: 05-20-2023 [facility]: 03-08-2023 Refill Phillip Iverson RN [facility] Procedures Date Procedure Procedure Detail Performing Clinician Start: 08-25-2022 Biopsy of breast BIOPSY OF BREAST RA POOJA VAISHALI Start: 07-19-2022 Mammography Saurabh Hoffm an RELIEF CAPTAIN Start: 09-07-2021 Adult depression scr eening assessment Soheila Tom MD Work Phone: Start: 06-10-2021 Mammography Maite Bojorquez MA Start: 01-05-2021 Mammography Karma helm DPM Work Phone: Start: 07-30-2020 Glucose [Mass/volume ] in Blood Regla Melo Work Phone: Start: 07-30-2020 Contrast echocardiography rAina Villegas Work Phone: Start: 07-30-2020 Glucose [Mass/volume ] in Blood Regla Melo Work Phone: Start: 07-30-2020 Complete blood count with white cell differential, automated Juana L. Baxter Work Phone: Start: 07-30-2020 Complete blood count with white cell differential, manual Juana L. Baxter Work Phone: Start: 07-29-2020 Glucose [Mass/volume ] in Blood Regla Melo Work Phone: Start: 07-29-2020 Glucose [Mass/volume ] in Blood Regla Melo Work Phone: Start: 07-29-2020 Electrocardiogram Provi yoli Not In System Start: 07-29-2020 Glucose [Mass/volume ] in Blood Regla Melo Work Phone: Start: 07-29-2020 Glucose [Mass/volume ] in Blood Regla Melo Work Phone: Start: 07-29-2020 Basic metabolic 2000 panel - Serum or Plasma Arina iVllegas Work Phone: Start: 07-29-2020 Complete blood count (hemogram) panel - Blood by Automated count Arina Villegas Work Phone: Start: 07-28-2020 Glucose [Mass/volume ] in Blood Regla Melo Work Phone: Start: 07-28-2020 CT angiography of pu lmonary artery Grant Naranjo Work Phone: Start: 07-28-2020 Gases blood ph direc t rohini xcpt pulse oximitry Grant Naranjo Work Phone: Start: 07-28-2020 Basic metabolic 2000 panel - Serum or Plasma Grant Naranjo Work Phone: Start: 07-28-2020 Complete blood count with white cell differential, automated Grant Granadosme Egal Work Phone: Start: 07-28-2020 Complete blood count with white cell differential, manual Grant Granadosme Egal Work Phone: Start: 07-28-2020 Hemoglobin A1c/Hemoglobin.total in Blood Arina Villegas Work Phone: Start: 07-28-2020 LAVENDER TOP Grant linares Egal Work Phone: Start: 07-28-2020 LIGHT BLUE TOP Grant Granadosme Egal Work Phone: Start: 07-28-2020 MINT GREEN TOP Grant Mckinney Egal Work Phone: Start: 07-28-2020 OBTAIN VENOUS BLOOD GASES AND PERFORM Grant Mckinney Egal Work Phone: Start: 07-28-2020 RAINBOW DRAW Grant celisme Egal Work Phone: Start: 07-28-2020 Troponin measurement Gael Mckinney Egal Work Phone: Start: 07-28-2020 12 lead ECG Grant linares Egal Work Phone: Start: 07-05-2020 Radiologic exam ches t single view Grant Mckinney Egal Work Phone: Start: 07-05-2020 Basic metabolic 2000 panel - Serum or Plasma Grant Granadosme Egal Work Phone: Start: 07-05-2020 Complete blood count with white cell differential, automated Grant Hank Egal Work Phone: Start: 07-05-2020 Complete blood count with white cell differential, manual Grant Penasame Egal Work Phone: Start: 07-05-2020 INR in Platelet poor plasma by Coagulation assay Grant Granadosme Egal Work Phone: Start: 06-26-2019 Assay of thyroid sti mulating hormone tsh June Miranda Start: 06-26-2019 Blood count complete auto&auto difrntl wbc June Miranda Start: 06-26-2019 Comprehensive metabo lic 2000 panel June Miranda Start: 06-26-2019 Hemoglobin glycosylated a1c June Miranda Start: 06-26-2019 Lipid panel June Miranda Start: 05-05-2018 End: 05-05-2018 Colonoscopy June Miranda Start: 05-05-2018 Colonoscopy June Miranda Work Phone: Plan of Treatment Date Care Activity Detail Author Start: 05-05-2028 Screening for malignant neoplasm of colon [facility] Start: 12-27-2026 Tetanus vaccination Tetanus: Every 10yrs [facility] Start: 02-15-2024 History and physical examination, annual for health maintenance Wellness Visit [facility] Start: 08-08-2023 End: 08-08-2023 Patient encounter procedure 08/08/2023 8:40 AM EST Office Visit [facility] [address] [place] [address] Soheila Tom MD [address] [address] [facility] Start: 07-19-2023 Screening for malignant neoplasm of breast Mammogram [facility] Start: 04-21-2023 End: 04-21-2023 Patient encounter procedure 04/21/2023 8:00 AM EDT Office Visit [facility] [address] [facility] [place] [address] George Mann MD [address] [address] [facility] Start: 02-18-2023 Influenza vaccination [facility] Start: 12-29-2022 End: 12-29-2022 ambulatory 12/29/2022 7:45 AM EDT Treat ment [facility] [address] [place] [address] Koko Johnson MD [address] [address] Ambreen Marvin PTA [facility] Start: 12-27-2022 End: 12-27-2022 ambulatory 12/27/2022 7:45 AM EDT Treat ment [facility] [address] [place] [address] Koko Johnson MD [address] [id number] Ambreen Marvin [facility] Start: 12-22-2022 End: 12-22-2022 ambulatory 12/22/2022 7:45 AM EDT Treat [facility] [address] [place] [address] [place] [address] [place] [address] Mauro Leroy PTA [facility] Start: 12-20-2022 End: 12-20-2022 ambulatory 12/20/2022 9:15 AM EDT Treat [facility] [address] [place] [address] [place] [address] [place] [address] Mauro Leroy PTA [facility] Start: 12-15-2022 End: 12-15-2022 ambulatory 12/15/2022 7:45 AM EDT [facility] [address] [place] [address] Koko Johnson MD [address] [address] Ambreen Marvin PTA [facility] Start: 12-13-2022 End: 12-13-2022 ambulatory 12/13/2022 7:45 AM EDT Treat ment [facility] [address] [place] [address] Koko Johnson MD [address] [address] Saurabh Hoover PTA [facility] Start: 12-08-2022 End: 12-08-2022 ambulatory 12/08/2022 7:45 AM EDT Treat ment [facility] [address] [place] [address] Koko Johnson MD [address] [address] Saurabh Hoover PTA [facility] Start: 09-07-2022 Depression screening using PHQ-9 (Patient Health Questionnaire 9) score Depression Screening (PHQ-2/9) [facility] Start: 06-10-2022 Screening for malignant neoplasm of breast Mammogram [facility] Start: 02-27-2022 Administration of herpes zoster vaccine Zoster Vaccines (3 of 3) [facility] Start: 02-18-2022 Influenza vaccination Sequential Influenza Vaccine (#1) [facility] Start: 01-25-2022 End: 01-25-2022 Patient encounter procedure 01/25/2022 Office Visit Primary Care Soheila Tom MD [address] [address] [facility] Start: 01-11-2022 End: 01-11-2022 Patient encounter procedure 01/11/2022 Office Visit Podiatry Karma Michel, CARLIE [address] [place] [address] [facility] Start: 01-05-2022 Screening for malignant neoplasm of breast Mammogram [facility] Start: 12-28-2021 End: 12-28-2021 Clinical Support 12/28/2021 Clinical Support Primary Care [facility] Start: 12-15-2021 End: 12-15-2021 Patient encounter procedure 12/15/2021 Office Visit Primary Care Soheila Tom MD [address] [address] [facility] Start: 11-11-2021 End: 11-11-2021 Admission to same day surgery center 11/11/2021 Surgery Alexey Kim MD [address] Joss[address] [address] ESOPHAGOGASTRODUODENOSCOPY WITH BIOPSY AND PLATT CHIP PLACEMENT [facility] Immunizations Immunization Date Immunization Notes Care Provider Fa cili 02-14-2023 zoster vaccine recombinant Phillip Iverson RN [facility] 01-02-2022 zoster vaccine recombinant Phillip Iverson RN [facility] 05-20-2021 influenza, injectabl e, quadrivalent, preservative free Soheila Tom MD Work Phone: [facility] 10-31-2020 Moderna COVID-19 Vaccine 100 MCG/0.5ML Intramuscular Suspension June Miranda Work Phone: [facility] Work Phone: 09-24-2020 Moderna COVID-19 Vaccine 100 MCG/0.5ML Intramuscular Suspension June Miranda Work Phone: [facility] Work Phone: 06-07-2020 influenza, injectabl e, quadrivalent, preservative free June Miranda Work Phone: [facility] Work Phone: 12-27-2016 tetanus toxoid, redu karthik diphtheria toxoid, and acellular pertussis vaccine, adsorbed Soheila Tom MD Work Phone: [facility] 10-10-2015 tetanus toxoid, redu karthik diphtheria toxoid, and acellular pertussis vaccine, adsorbed Soheila Tom MD Work Phone: [facility] 02-03-2015 zoster vaccine, live June Miller [email or web address] [facility] Work Phone: Payers Date Payer Category Payer Unknown [employer] PPO [id number] 2019-Present [id number] 2019 Unknown 2019 Unknown [id number] 2019 Unknown [id number] 2013 Unknown [id number] 2008 Unknown [id number] 1965 Unknown [id number] 1965 Unknown [id number] 1965 Unknown [id number] 1965 Unknown [id number] 1963 Unknown [id number] 1963 Unknown [id number] 1963 Unknown [id number] 1963 Unknown [id number] [id number] 1963 Unknown [id number] [id number] 1963 Unknown [id number] [id number] 1963 Unknown [id number] [id number] 1963 Unknown [id number] [id number] 1965 Unknown [id number] 2.16.840.1.782881.3.579.2. 1965 Unknown [id number] [id number] 1965 Unknown [id number] [id number] 1965 Unknown [id number] [id number] 1965 Unknown [id number] Unknown [id number] Unknown [id number] Social History Date Type Detail Facility Start: 01-19-2017 End: 11-02-2021 Tobacco smoking status ILIS Never smoker [facility] Start: 1965 Sex Assigned At Not on file [facility] Work Phone: Start: 07-28-2020 End: 11-02-2021 Tobacco use and exposure Never used [facility] Start: 07-28-2020 End: 02-14-2023 Alcohol intake Current drinker of alcohol (finding) [facility] Start: 07-05-2020 Alcohol Comment OCCAISIONALLY [facility] Start: 08-28-2021 End: 09-01-2022 Exposure to SARS-CoV-2 (event) Not sure [facility] Exposure to SARS-CoV -2 (event) Yes [facility] Start: 09-07-2021 End: 11-02-2021 [facility] Start: 10-16-2021 End: 10-26-2021 Exposure to SARS-CoV-2 (event) Unable to assess [facility] Start: 09-07-2021 End: 11-29-2022 Tobacco use panel [facility] Adult Depression Screening Assessment 13 [facility] Start: 03-15-2019 Gender identity Identifies as female gender (finding) [facility] Start: 03-15-2019 Sexual orientation Heterosexual (finding) [facility] Functional Status Date Assessment Result Facility NEGATED: Highlighted row Functional performance Functional status health issues are not documented Disease [facility] Work Phone: Mental Status Date Assessment Result Facility NEGATED: Highlighted row Cognitive function [Interpretation] Cognitive status health issues are not documented Disease [facility] Work Phone: Clinical Notes 12-07-2020 to 07-11-2023 Telephone Encounter - Phillip Iverson RN - 03/08/2023 10:56 AM EDTTelephone Encounter - Phillip Iverson RN - 03/08/2023 10:56 AM Mauro Garcia PTA - 12/22/2022 7:45 AM EDT Note Date & Type Note Facility 07-11-2023 Note HNO ID: [id number] Author: JUANA RUVALCABA RT(R) Service: ? Author Type: Bowstring Maker Type: Progress Notes Filed: 07/11/2023 09:22 Note Text: Radiology Service Progress Note PATIENT NAME: Haydee Max DATE OF SERVICE: July 11, 2023 TIME: 9:05 AM PATIENT IDENTITY VERIFICATION COMPLETED USING TWO (2) IDENTIFIERS: Name and Date of confirmed by patient verbally. FALL SCREENING: Has the patient had 2 falls in the last year or 1 fall with injury or currently using an Ambulatory Assistive Device (Walker, Cane, Wheelchair, Crutches, etc.)? No PATIENT GENDER DATA: Female. status: : No status: NO. PATIENT RELEVANT IMPLANT DATA REVIEWED: Yes RADIOLOGY DEPARTMENT: MR; Exam(s) Completed: Spine: Lumbar spine PERIPHERAL IV DATA: Not applicable SIGNED BY: RT Michelle(R), (R) July 11, 2023 9:05 AM [facility] 03-08-2023 Telephone encounter Note PLEASE DOUBLE CHECK DIRECTIONS, SOME OF THE MEDICATIONS HAVE INSTRUCTIONS TO TAKE FOR 10 DAYS. LAST OV 02/14/23. NEXT OV SCHEDULED FOR 08/08/23. [facility] 03-08-2023 Miscellaneous Notes PLEASE DOUBLE CHECK DIRECTIONS, SOME OF THE MEDICATIONS HAVE INSTRUCTIONS TO TAKE FOR 10 DAYS. LAST OV 02/14/23. NEXT OV SCHEDULED FOR 08/08/23. ----- Message from Steffanie Holloway sent at 03/08/2023 10:09 AM EDT ----- Regarding: rx refill Contact: self MEDICATION REFILL REQUEST: PCP: Soheila Tom MD Patient called 03/08/23 and is requesting a medication refill for atorvastatin (LIPITOR) 40 MG tablet lisinopriL (PRINIVIL,ZESTRIL) 10 MG tablet desvenlafaxine succinate 25 mg Tb24 busPIRone (BUSPAR) 10 MG tablet metFORMIN (GLUCOPHAGE-XR) 500 MG 24 hr tablet rizatriptan (MAXALT) 10 MG tablet. This was confirmed from the current medication list found in the patients chart. Supply Requested: # of days: 90 days Method of receiving: Send to pharmacy Last set of flowsheet rows for OARRS report: OARRS/NARxCHECK Report Received and Assessed: No data found Date controlled substance agreement signed: No data found Date of last drug screen: No data found Functional Assessment: No data found Will this refill be sent to the preferred pharmacy listed below? Yes Preferred pharmacies: [facility] - [address] [address] Pt Call Back Number Work Phone Not on file. Patient call back message sent to the primary care clinical pool. Steffanie Holloway documented in this encounter [facility] 03-08-2023 Telephone encounter Note ----- Message from Steffanie Holloway sent at 03/08/2023 10:09 AM EDT ----- Regarding: rx refill Contact: self MEDICATION REFILL REQUEST: PCP: Soheila Tom MD Patient called 03/08/23 and is requesting a medication refill for atorvastatin (LIPITOR) 40 MG tablet lisinopriL (PRINIVIL,ZESTRIL) 10 MG tablet desvenlafaxine succinate 25 mg Tb24 busPIRone (BUSPAR) 10 MG tablet metFORMIN (GLUCOPHAGE-XR) 500 MG 24 hr tablet rizatriptan (MAXALT) 10 MG tablet. This was confirmed from the current medication list found in the patients chart. Supply Requested: # of days: 90 days Method of receiving: Send to pharmacy Last set of flowsheet rows for OARRS report: OARRS/NARxCHECK Report Received and Assessed: No data found Date controlled substance agreement signed: No data found Date of last drug screen: No data found Functional Assessment: No data found Will this refill be sent to the preferred pharmacy listed below? Yes Preferred pharmacies: [facility] [address] [address] Pt Call Back Number Work Phone Not on file. Patient call back message sent to the [facility]. Steffanie Holloway [facility] 12-22-2022 History of Present illness Narrative [facility] DAILY TREATMENT NOTE Today's Date 12/22/2022 Patient Name: Haydee Max Date of : 1965 Current Visit #: 5 Authorized Visits: 20 Case Name: Left Side Sciatica and Neck Pain History: Pre-Treatment Pain Scale: 6 Symptoms: stabilized Functional Diagnosis: 1. Neck muscle spasm 2. Left sciatic nerve pain Clinical Information: Subjective: Pt reports avg pain coming in today and min soreness after LV Objective Ceud to maintain QS with SLR, pt felt increased tightness on hip and nerve tension Performed prone pin-stretch on L piriformis Treatments: Physical Therapy Exercise Log - 12/22/22 0751 OTHER Precautions/Contraindications Supervising PT: Devaughn - pt states her neck is feeling fine and she would like to focus on her left leg/sciatica Notes Visit 4 [phone] Therapeutic Exercise (62633) Intervention scifit L4 x 6' Parameters seated HS stretch - 15 sec x3 Intervention SLS 2x30'' Parameters LTR - 5 sec x10 Intervention Bridges - 3''x15 Parameters supine sciatic nerve glides 5 sec x15 Intervention hip abd, add - x20 ball GTB Parameters SLR - 2x10 Intervention -- Parameters Clamshell - x15 NT Intervention supine piriformis stretch - 20 sec x3 NT Parameters -- Intervention SKTC - 20 sec x3 Manual Therapy (40380) Intervention STM - to L piriformis - x8 min PT Treatment Times Therex Total Time 45 Direct Treatment Time 45 Total Treatment Time 47 Goals: Physical Therapy Ortho Goals: CHANGING MAINTAINING POSITON: Patient will be able to sit for 1 hour without pain in 4 weeks IMPAIRMENT: Patient will demonstrate improved postural awareness in PT sessions to facilitate mechanical alignment and function in 3 weeks. IMPAIRMENT: Improve pain from 10/10 to <4/10 during prolonged sitting and performing activities at the counter/sink in 4 weeks IMPAIRMENT: Improve MMT of Left Ankle DF from 3+/5 to at least 4-/5 in 4 weeks OTHER: Patient will increase FOTO score from 54 to at least 65 to show MDC/MCII and expected functional outcome in 4 weeks. OTHER: Patient will be able to properly demonstrate independence with HEP in 1 week. Patient Education: Verbal HEP with patient verbalized understanding. Post-Treatment Pain Scale: 4 Assessment: Patient had an expected response to treatment. Skilled Intervention demonstrated by modifications of treatment per exercise log including assessment of patient's response and safety interventions per exercise log. Progress towards goals as expected. Plan for Next Visit: Treatment Visit with focus on progressing as tolerated Mauro Leroy PTA STATE LICENSE, [id number] documented in this encounter [facility] 12-15-2022 History of Present illness Narrative [facility] DAILY TREATMENT NOTE Today's Date 12/15/2022 Patient Name: Haydee Max Date of : 1965 Current Visit #: 4 Authorized Visits: 20 Case Name: Left Side Sciatica and Neck Pain History: Pre-Treatment Pain Scale: 2 Symptoms: gradually improved Functional Diagnosis: 1. Neck muscle spasm 2. Left sciatic nerve pain Clinical Information: Subjective: She notices improvements already with decreased pain. Objective added scifit with good tolerance Treatments: Physical Therapy Exercise Log - 12/15/2224 OTHER Precautions/Contraindications Supervising PT: Devaughn - pt states her neck is feeling fine and she would like to focus on her left leg/sciatica Notes Visit 3: 7:47 - 8:28 Therapeutic Exercise (18329) Intervention SKTC - 20 sec x3 Parameters seated HS stretch - 15 sec x3 Intervention supine piriformis stretch - 20 sec x3 Parameters LTR - 5 sec x10 Intervention alt PPTs/APTs - 5 sec x10 Parameters Bridges - x10 Intervention hip abd, add - x15 ball GTB Parameters supine sciatic nerve glides 5 sec x10 Intervention SLR - x15 Parameters Clamshell - x15 Intervention scifit 6' lv 3.5 Parameters STM (see below) Manual Therapy (87701) Intervention STM - to L piriformis - x8 min PT Treatment Times Therex Total Time 32 Manual Therapy Total Time 8 Direct Treatment Time 40 Total Treatment Time 40 Goals: Physical Therapy Ortho Goals: CHANGING MAINTAINING POSITON: Patient will be able to sit for 1 hour without pain in 4 weeks IMPAIRMENT: Patient will demonstrate improved postural awareness in PT sessions to facilitate mechanical alignment and function in 3 weeks. IMPAIRMENT: Improve pain from 10/10 to <4/10 during prolonged sitting and performing activities at the counter/sink in 4 weeks IMPAIRMENT: Improve MMT of Left Ankle DF from 3+/5 to at least 4-/5 in 4 weeks OTHER: Patient will increase FOTO score from 54 to at least 65 to show MDC/MCII and expected functional outcome in 4 weeks. OTHER: Patient will be able to properly demonstrate independence with HEP in 1 week. Patient Education: Quality of movement with patient demonstrated understanding. Post-Treatment Pain Scale: 2 Assessment: Patient had an expected response to treatment. Skilled Intervention demonstrated by modifications of treatment per exercise log including increased load and safety interventions per exercise log. Progress towards goals as expected. Plan for Next Visit: Treatment Visit with focus on pain control Ambreen Marvin PTA STATE LICENSE, [id number] documented in this encounter [facility] 12-08-2022 History of Present illness Narrative [facility] DAILY TREATMENT NOTE Today's Date 12/08/2022 Patient Name: Haydee Max Date of : 1965 Current Visit #: 3 Authorized Visits: 20 Case Name: Left Side Sciatica and Neck Pain History: Pre-Treatment Pain Scale: 2 Symptoms: gradually improved Functional Diagnosis: 1. Neck muscle spasm 2. Left sciatic nerve pain Clinical Information: Subjective: Pt reports pain in hip and back is less intense today and radicular symptoms are improving. Objective Treatments: Physical Therapy Exercise Log - 12/08/22 0748 OTHER Precautions/Contraindications Supervising PT: Devaughn - pt states her neck is feeling fine and she would like to focus on her left leg/sciatica Notes Visit 2: 7:47 - 8:25 Therapeutic Exercise (48403) Intervention SKTC - 20 sec x3 Parameters seated HS stretch - 15 sec x3 Intervention supine piriformis stretch - 20 sec x3 Parameters LTR - 5 sec x10 Intervention alt PPTs/APTs - 5 sec x10 Parameters Bridges - x10 Intervention hip abd, add - x15 ball GTB Parameters supine sciatic nerve glides 5 sec x10 Intervention SLR - x15 Parameters Clamshell - x15 Parameters STM (see below) Manual Therapy (03462) Intervention STM - to L piriformis - x8 min PT Treatment Times Therex Total Time 30 Manual Therapy Total Time 8 Direct Treatment Time 38 Total Treatment Time 38 Goals: Physical Therapy Ortho Goals: CHANGING MAINTAINING POSITON: Patient will be able to sit for 1 hour without pain in 4 weeks IMPAIRMENT: Patient will demonstrate improved postural awareness in PT sessions to facilitate mechanical alignment and function in 3 weeks. IMPAIRMENT: Improve pain from 10/10 to <4/10 during prolonged sitting and performing activities at the counter/sink in 4 weeks IMPAIRMENT: Improve MMT of Left Ankle DF from 3+/5 to at least 4-/5 in 4 weeks OTHER: Patient will increase FOTO score from 54 to at least 65 to show MDC/MCII and expected functional outcome in 4 weeks. OTHER: Patient will be able to properly demonstrate independence with HEP in 1 week. Patient Education: Quality of movement with patient demonstrated understanding. Post-Treatment Pain Scale: 0 Assessment: Patient had an expected response to treatment. Skilled Intervention demonstrated by modifications of treatment per exercise log including increased load and safety interventions per exercise log. Progress towards goals as expected. Plan for Next Visit: Treatment Visit with focus on STM and core strengthening Saurabh Hoover PTA STATE LICENSE, [id number] documented in this encounter [facility] 12-06-2022 History of Present illness Narrative [facility] OUT[facility] DAILY TREATMENT NOTE Today's Date 12/06/2022 Patient Name: Haydee Max Date of : 1965 Current Visit #: 2 Authorized Visits: 20 Case Name: Left Side Sciatica and Neck Pain History: Pre-Treatment Pain Scale: 7 Symptoms: stabilized Functional Diagnosis: 1. Neck muscle spasm 2. Left sciatic nerve pain Clinical Information: Subjective: Pt reports hip hurting today with radicular symptoms down L leg pain and numbness down to lower leg and Big toe is totally numb. Compliant with HEP Objective Treatments: Physical Therapy Exercise Log - 12/06/22 0745 OTHER Precautions/Contraindications Supervising PT: Devaughn - pt states her neck is feeling fine and she would like to focus on her left leg/sciatica Notes Visit 1: 7:45 - 8:27 Therapeutic Exercise (38491) Intervention SKTC - 20 sec x3 Parameters seated HS stretch - 15 sec x3 Intervention supine piriformis stretch - 20 sec x3 Parameters LTR - 5 sec x10 Intervention alt PPTs/APTs - 5 sec x10 Parameters Bridges - x10 Intervention hip abd, add - x10 ball GTB Parameters supine sciatic nerve glides 5 sec x10 Intervention SLR - x10 Parameters Clamshell - x10 Intervention STM (see below) Manual Therapy (35907) Intervention STM - to L piriformis - x8 min PT Treatment Times Therex Total Time 34 Manual Therapy Total Time 8 Direct Treatment Time 42 Total Treatment Time 42 Goals: Physical Therapy Ortho Goals: CHANGING MAINTAINING POSITON: Patient will be able to sit for 1 hour without pain in 4 weeks IMPAIRMENT: Patient will demonstrate improved postural awareness in PT sessions to facilitate mechanical alignment and function in 3 weeks. IMPAIRMENT: Improve pain from 10/10 to <4/10 during prolonged sitting and performing activities at the counter/sink in 4 weeks IMPAIRMENT: Improve MMT of Left Ankle DF from 3+/5 to at least 4-/5 in 4 weeks OTHER: Patient will increase FOTO score from 54 to at least 65 to show MDC/MCII and expected functional outcome in 4 weeks. OTHER: Patient will be able to properly demonstrate independence with HEP in 1 week. Patient Education: Quality of movement with patient demonstrated understanding. Post-Treatment Pain Scale: 4 Assessment: Patient had an expected response to treatment. Skilled Intervention demonstrated by modifications of treatment per exercise log including increased load and safety interventions per exercise log. Progress towards goals as expected. Plan for Next Visit: Treatment Visit with focus on core strengthening and STM Saurabh Hoover PTA STATE LICENSE, [id number] documented in this encounter [facility] 09-01-2022 Instructions Soheila Tom MD - 09/01/2022 5:52 PM EDT Problem List Items Addressed This Visit Musculoskeletal and Integument Neck muscle spasm - Primary For acute pain, rest, intermittent application of cold packs (later, may switch to heat, but do not sleep on heating pad), analgesics and muscle relaxants are recommended. Proper lifting with avoidance of heavy lifting discussed. Consider Physical Therapy studies if not improving. Call or return to clinic prn if these symptoms worsen or fail to improve as anticipated. Relevant Orders XR Cervical Spine Complete 4-5 Views (Standard) If any referrals were placed at the time of your visit please allow 2 weeks for processing. If you haven't heard from anyone within 2 weeks please contact my office so we can look into the status of your referral. If you were given any labs today please ensure they are completed according to the directions given. Most normal results will be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 Oropharynx is clear. No pharyngeal swelling. Eyes: Extraocular Movements: Extraocular movements intact. Conjunctiva/sclera: Conjunctivae normal. Pupils: Pupils are equal, round, and reactive to light. Neck: Thyroid: No thyroid mass. Cardiovascular: Rate and Rhythm: Normal rate and regular rhythm. Heart sounds: Normal heart sounds. Pulmonary: Effort: Pulmonary effort is normal. Breath sounds: Normal breath sounds. Abdominal: General: Abdomen is flat. There is no distension. Palpations: Abdomen is soft. Musculoskeletal: General: Normal range of motion. Cervical back: Full passive range of motion without pain. Skin: General: Skin is warm. Neurological: General: No focal deficit present. Mental Status: She is alert and oriented to person, place, and time. Mental status is at baseline. Psychiatric: Attention and Perception: Attention and perception normal. Mood and Affect: Mood is anxious and depressed. Affect is tearful. Speech: Speech normal. Behavior: Behavior is cooperative. Thought Content: Thought content normal. Thought content is not paranoid. Thought content does not include homicidal or suicidal ideation. Judgment: Judgment normal. PHQ9: OSMEL-7 Tobacco Counseling: Counseling given: Not Answered Assessment/Plan: Problem List Hypertension I still believe due to her anxiousness her bp is elevated She will call clinic back in 2 weeks with updated bp readings Cont lisinopril 10mg Anxiety Advised her to restart pristique 25mg and cont buspar 10mg bid -discussed compliance and if she is running out of medication to please call to avoid withdrawal symptoms -she continues to follow up with counseling Return in about 1 week (around 12/22/2021) for Follow up Nurse Visit -BP. For any new medications prescribed today, patient was educated about indications for the medication, how to take the medication and potential side effects of the medications. Soheila Tom MD [facility] [address] Dept: [phone] documented in this encounter [facility] 12-14-2021 Telephone encounter Note Called and informed pt appt was needed to further disucss increasing lisinopril per . Appt scheduled for tomorrow 12/15/21 at 6:20pm. Pt thankful. [facility] 12-14-2021 Miscellaneous Notes Called and informed pt appt was needed to further disucss increasing lisinopril per Appt scheduled for tomorrow 12/15/21 at 6:20pm. Pt thankful. ----- Message from Ursula Nino sent at 12/14/2021 12:09 PM EDT ----- Regarding: Rx Refill Contact: Haydee [phone] MEDICATION REFILL REQUEST: PCP: Soheila Tom MD Patient called 12/14/21 and is requesting a medication refill for lisinopriL (PRINIVIL,ZESTRIL) 20 MG tablet desvenlafaxine succinate 25 mg Tb24 (see note below) This was confirmed from the current medication list found in the patients chart. Supply Requested: # of days: 90 days Method of receiving: Send to pharmacy Last set of flowsheet rows for OARRS report: OARRS/NARxCHECK Report Received and Assessed: No data found Date controlled substance agreement signed: No data found Date of last drug screen: No data found Functional Assessment: No data found Will this refill be sent to the preferred pharmacy listed below? Yes Preferred pharmacies: [facility]/pharmacy [id number] [place] [address] Pt Call Back Number Work Phone Not on file. Patient would like her lisinopril dose increased to 20mg she has been taking 2 pills a day and it seems to help. She also has been having ringing in her ears. She also feels like she is having a hard time lately, please advise. Patient call back message sent to the primary care clinical pool. Ursula Nino documented in this encounter [facility] 12-14-2021 Telephone encounter Note ----- Message from Ursula Nino sent at 12/14/2021 12:09 PM EDT ----- Regarding: Rx Refill Contact: Haydee [phone] MEDICATION REFILL REQUEST: PCP: Soheila Tom MD Patient called 12/14/21 and is requesting a medication refill for lisinopriL (PRINIVIL,ZESTRIL) 20 MG tablet desvenlafaxine succinate 25 mg Tb24 (see note below) This was confirmed from the current medication list found in the patients chart. Supply Requested: # of days: 90 days Method of receiving: Send to pharmacy Last set of flowsheet rows for OARRS report: OARRS/NARxCHECK Report Received and Assessed: No data found Date controlled substance agreement signed: No data found Date of last drug screen: No data found Functional Assessment: No data found Will this refill be sent to the preferred pharmacy listed below? Yes Preferred pharmacies: [facility]/pharmacy [id number] [place] [address] Pt Call Back Number Work Phone Not on file. Patient would like her lisinopril dose increased to 20mg she has been taking 2 pills a day and it seems to help. She also has been having ringing in her ears. She also feels like she is having a hard time lately, please advise. Patient call back message sent to the primary care clinical pool. Ursula Nino [facility] 11-02-2021 Note Addended by: PHILLIP IVERSON on: 11/02/2021 02:00 PM Modules accepted: Orders [facility] 11-02-2021 Note Addended by: PHILLIP IVERSON on: 11/02/2021 02:00 PM Modules accepted: Orders [facility] 11-02-2021 Miscellaneous Notes Addended by: PHILLIP IVERSON on: 11/02/2021 02:00 PM Modules accepted: Orders RECEIVED FAX FROM PHARMACY. REQUESTING REFILL ON LISINOPRIL. LAST OV 10/26/21. NEXT OV 01/25/22. documented in this encounter [facility] 11-02-2021 Miscellaneous Notes Addended by: PHILLIP IVERSON on: 11/02/2021 02:00 PM Modules accepted: Orders RECEIVED FAX FROM PHARMACY. REQUESTING REFILL ON LISINOPRIL. LAST OV 10/26/21. NEXT OV 01/25/22. documented in this encounter [facility] 11-02-2021 Telephone encounter Note RECEIVED FAX FROM PHARMACY. REQUESTING REFILL ON LISINOPRIL. LAST OV 10/26/21. NEXT OV 01/25/22. [facility] 11-02-2021 History of Present illness Narrative Subjective Patient ID: Haydee Max is a 56 y.o. female. HPI Patient referred for progressively worsening dysphagia and heartburn symptoms. She reports worsening over the past year. She reports choking daily. She reports if can occur with solids and liquids. She has troubles swallowing. She reports her previous physician started her on omeprazole for this. She reports that her new PCP stopped the omeprazole and since stopping she has been having increased epigastric abdominal pain and heartburn symptoms. She reports belching and acidic taste changes that radiate up in to her chest. She now uses over the counter antacids as needed for heartburn. She has never had a previous EGD. There is mention of hiatal hernia in her notes. I reviewed a previous CTPA study from 07/28/20 and there does appear to be a small hiatal hernia present. Past Medical History: Diagnosis Date Anxiety Arthritis Breast cancer (HCC) COVID-19 GERD (gastroesophageal reflux disease) Hyperlipidemia Hypertension NEFTALI (obstructive sleep apnea) Past Surgical History: Procedure Laterality Date BREAST SURGERY LUMPECTOMY SINUS SURGERY SPINE SURGERY C4-7- with cadaver bone; titanium plate; disc replaced- 2011. THYROID SURGERY TONSILLECTOMY has a current medication list which includes the following prescription(s): albuterol, atorvastatin, buspirone, cholecalciferol (vitamin d3), citalopram, desvenlafaxine succinate, docusate sodium, ergocalciferol, fluticasone propionate, lisinopril, metformin, omeprazole, and rizatriptan. Allergies: Shrimp; Adhesive tape-silicones; Fish,bora,flax oils-om3,6,9no1; Shellfish containing products; and Shellfish derived Social History Socioeconomic History Marital status: Tobacco Use Smoking status: Never Smokeless tobacco: Never Vaping Use Vaping Use: Never used Substance and Sexual Activity Alcohol use: Yes Comment: OCCAISIONALLY Drug use: Not Currently Family History Problem Relation Age of Onset Cancer Mother Breast Heart disease Father Cancer Brother follicular Cancer Maternal Uncle colon cancer Review of Systems Constitutional: Negative for activity change, appetite change, chills, fatigue, fever and unexpected weight change. HENT: Positive for trouble swallowing. Negative for hearing loss and nosebleeds. Eyes: Negative for visual disturbance. Respiratory: Positive for shortness of breath. Negative for cough, wheezing and stridor. Cardiovascular: Negative for chest pain and leg swelling. Gastrointestinal: Negative for abdominal distention, abdominal pain, blood in stool, constipation, diarrhea, nausea and vomiting. Endocrine: Negative for cold intolerance and heat intolerance. Genitourinary: Negative for difficulty urinating, frequency, hematuria and urgency. Musculoskeletal: Negative for arthralgias. Skin: Negative for rash and wound. Allergic/Immunologic: Negative for environmental allergies and food allergies. Neurological: Negative for seizures, syncope, weakness and numbness. Hematological: Negative for adenopathy. Does not bruise/bleed easily. Psychiatric/Behavioral: Positive for dysphoric mood. Negative for agitation. The patient is nervous/anxious. Objective Physical Exam Vitals reviewed. Constitutional: General: She is not in acute distress. Appearance: Normal appearance. She is well-developed. She is not diaphoretic. HENT: Head: Normocephalic and atraumatic. Right Ear: External ear normal. Left Ear: External ear normal. Nose: Nose normal. Eyes: Pupils: Pupils are equal, round, and reactive to light. Neck: Thyroid: No thyromegaly. Vascular: No JVD. Trachea: No tracheal deviation. Cardiovascular: Rate and Rhythm: Normal rate and regular rhythm. Heart sounds: Normal heart sounds. Pulmonary: Effort: Pulmonary effort is normal. No respiratory distress. Breath sounds: Normal breath sounds. Abdominal: General: Bowel sounds are normal. There is no distension. Palpations: Abdomen is soft. There is no mass. Tenderness: There is no abdominal tenderness. There is no guarding or rebound. Musculoskeletal: General: Normal range of motion. Cervical back: Normal range of motion. Skin: General: Skin is warm and dry. Neurological: General: No focal deficit present. Mental Status: She is alert. Mental status is at baseline. Cranial Nerves: No cranial nerve deficit. Psychiatric: Behavior: Behavior normal. Assessment/Plan: Diagnoses and all orders for this visit: Heartburn - Case Request Operating Room: ESOPHAGOGASTRODUODENOSCOPY WITH BIOPSY AND PLATT CHIP PLACEMENT, ESOPHAGEAL MANOMETRY, PROLONGED ACID REFLUX TEST 48H PH Dysphagia, unspecified type - Ambulatory referral to Gastroenterology - Case Request Operating Room: ESOPHAGOGASTRODUODENOSCOPY WITH BIOPSY AND PLATT CHIP PLACEMENT, ESOPHAGEAL MANOMETRY, PROLONGED ACID REFLUX TEST 48H PH Other orders - Height and weight; Standing - Vital signs; Standing - Insert peripheral IV; Standing - lactated Ringers infusion Esophageal manometry, EGD with platt chip placement. Details of procedure, rationale, R/B/A discussed with patient and they are agreeable to proceed documented in this encounter [facility] 10-28-2021 Evaluation + Plan note Associated Problem(s): Dysphagia Hx of gerd and hiatal hernia -possible oropharyngeal dysphagia -discussed egd with pt and she was amenable- has appt w/ gastroenterology [facility] 10-28-2021 Instructions Soheila Tom MD - 10/28/2021 10:51 PM EDT Problem List Items Addressed This Visit Digestive Dysphagia Hx of gerd and hiatal hernia -possible oropharyngeal dysphagia -discussed egd with pt and she was amenable- has appt w/ gastroenterology Other Anxiety Successfully tapered off celexa She is currently on pristique 25mg and buspar 10mg bid- symptoms have improved significantly -will hold off on increasing pristqiue to 50mg at this time -she continues to follow up with counseling Memory impairment of gradual onset Vit b12, rpr testing was unrevealing -we discussed completing moca test at next appt Consider ct scan If any referrals were placed at the time of your visit please allow 2 weeks for processing. If you haven't heard from anyone within 2 weeks please contact my office so we can look into the status of your referral. If you were given any labs today please ensure they are completed according to the directions given. Most normal results will be available through [facility] however if abnormal, you will be notified. Please allow 48-72 hours for review, and let you know what steps, if any, are needed next. If you haven't heard from us after that please call to inquire. If labs were ordered to be done PRIOR to your next visit we will discuss the results at the time of your office visit. If any procedures or imaging studies were ordered that must be prior authorized please give us 2 weeks to get them approved. Once approved someone should call you to schedule them or give you a date and time that they were scheduled for. If you haven't heard anything within 2 weeks of the office visit please call the office so we can look into their status. Customer Service/Billing Questions: [phone] [facility] Assistance: [phone] or [phone] Financial Assistance: [phone] or [phone] documented in this encounter [facility] 10-28-2021 Miscellaneous Notes Associated Problem(s): Dysphagia Hx of gerd and hiatal hernia -possible oropharyngeal dysphagia -discussed egd with pt and she was amenable- has appt w/ gastroenterology Associated Problem(s): Memory impairment of gradual onset Vit b12, rpr testing was unrevealing -we discussed completing moca test at next appt Consider ct scan Associated Problem(s): Anxiety Successfully tapered off celexa She is currently on pristique 25mg and buspar 10mg bid- symptoms have improved significantly -will hold off on increasing pristqiue to 50mg at this time -she continues to follow up with counseling documented in this encounter [facility] 10-28-2021 Evaluation + Plan note Associated Problem(s): Memory impairment of gradual onset Vit b12, rpr testing was unrevealing -we discussed completing moca test at next appt Consider ct scan [facility] 10-28-2021 Evaluation + Plan note Associated Problem(s): Anxiety Successfully tapered off celexa She is currently on pristique 25mg and buspar 10mg bid- symptoms have improved significantly -will hold off on increasing pristqiue to 50mg at this time -she continues to follow up with counseling [facility] 10-26-2021 History of Present illness Narrative Video Visit [facility] [address] [place] [address] [facility] [address] [place] [id number] Via Real-time Synchronous Audiovisual [facility] 10/26/2021 Soheila Tom MD Provider Location: [address] [place] [address] Patient Location Pattern Cutter: None Patient Location: Patient's Home Patient: Haydee Max Date of : 1965 (56 y.o. female) PCP: Soheila Tom MD Video Visit Consent Statement: I discussed risks, benefits and alternatives of a real-time synchronous audiovisual consultation with the patient (and any accompanying persons) including the risks that the patient s personal health details and medical records will be discussed over real-time, synchronous, interactive video/audio/telecommunication technology, the visit will not be recorded without the express consent of both the provider and the patient, and that there are some limitations compared to [id number] evaluations. We elected to proceed. Subjective Patient ID: Haydee Max is a 56 y.o. female. Chief Complaint Patient presents with follow up anxiety HPI Haydee Max is a 56 y.o. female with a past medical history of breast cancer, reflux, hyperlipidemia, hypertension, migraines, glucose intolerance, NEFTALI, anxiety presenting for a follow up. 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 She is currently on pristique 25mg mg daily and has been taking buspar 10mg bid. She successfully tapered off the celexa and states pristique has significantly improved her symptoms. She seems to be in high spirits today and is very grateful. She states since starting pristique, her mood has improved, she states her anxiety symptoms have resolved! She also noticed that her fatigue has improved and she has more motivation to go out and meet her friends/family and socialize. Previously she stated she has increased fatigue, increased agitation, decrease in concentration and feels like she gets more than adequate sleep (sometimes sleeping too much) but still feels exhausted. She was feeling nervous because her is currently working in [place] and this is been difficult for her. Patient denies any panic attacks/anxiety attacks, no palpitations, lightheadedness, blurry vision. She denies any SI/HI or thoughts of self-harm and she denies any previous hospitalizations for these conditions. Dysphagia- has underlying hx of gerd and hiatal hernia. She has been taking omeprazole for >5 years- takes it as needed. She states dysphagia symptoms have worsened over the last few months. She has episodes of 'food sticking' as she tries to swallow- this occurs at least 1-2 times a week. She tries to chew food thoroughly and eat softer foods but still has this concern. She denies any previous history of EGD. She denies any weight loss associated with this. There is no pain associated when this occurs, but she states she has to be cognizant of when she is swallowing. She also state she 'chokes on water' often and this has been a long standing issue. She tried omeprazole and states that that has not helped with her symptoms. She denies any sore throat, post nasal drip We discussed further testing was required for her memory impairment including a moca test- patient states she is currently out of town but she is willing to complete that on our next appt. All pertinent positives and negatives are documented in ROS Patient's medications, allergies, past medical history, surgical history history, family history, social history were reviewed. Spent more than 15 minutes with patient, coordinating patient care, including reviewing charts and counseling patient. Past Medical History: Diagnosis Date Anxiety Arthritis Breast cancer (HCC) COVID-19 GERD (gastroesophageal reflux disease) Hyperlipidemia Hypertension NEFTALI (obstructive sleep apnea) Past Surgical History: Procedure Laterality Date BREAST SURGERY LUMPECTOMY SINUS SURGERY SPINE SURGERY C4-7- with cadaver bone; titanium plate; disc replaced- 2011. THYROID SURGERY TONSILLECTOMY Family History Problem Relation Age of Onset Cancer Mother Breast Heart disease Father Cancer Brother follicular Cancer Maternal Uncle colon cancer Social History Tobacco Use Smoking status: Never Smoker Smokeless tobacco: Never Used Vaping Use Vaping Use: Never used Substance Use Topics Alcohol use: Yes Comment: OCCAISIONALLY Drug use: Not Currently Allergies Allergen Reactions Shrimp Anaphylaxis Adhesive Tape-Silicones Other reaction(s): PT UNSURE OF REACTION, U Fish,Bora,Flax Oils-Om3,6,9no1 Shellfish Containing Products Other reaction(s): Anaphylaxis Shellfish Derived Other (See Comments) Patient's Medications New Prescriptions No medications on file Previous Medications ALBUTEROL (PROAIR HFA) 90 MCG/ACTUATION INHALER Inhale 2 (two) puffs every 4 (four) hours as needed for wheezing or shortness of breath . ATORVASTATIN (LIPITOR) 40 MG TABLET Take 40 mg by mouth daily . BUSPIRONE (BUSPAR) 10 MG TABLET Take 1 (one) tablet (10 mg total) by mouth 2 (two) times a day . CHOLECALCIFEROL, VITAMIN D3, 1,000 UNIT TABLET Take 1,000 Units by mouth daily . CITALOPRAM (CELEXA) 10 MG TABLET Take 3 (three) tablets (30 mg total) by mouth daily for 7 days, THEN 2 (two) tablets (20 mg total) daily for 7 days, THEN 1 (one) tablet (10 mg total) daily for 7 days. DOCUSATE SODIUM (COLACE) 100 MG CAPSULE Take 1 Unspecified by mouth . ERGOCALCIFEROL (ERGOCALCIFEROL) 1,250 MCG (50,000 UNIT) CAPSULE Take 1 (one) capsule (50,000 Units total) by mouth once a week for 8 doses . FLUTICASONE PROPIONATE (FLONASE) 50 MCG/ACTUATION NASAL SPRAY Instill 2 (two) sprays into each nostril daily . LISINOPRIL (PRINIVIL,ZESTRIL) 10 MG TABLET Take 1 (one) tablet (10 mg total) by mouth daily . METFORMIN (GLUCOPHAGE-XR) 500 MG 24 HR TABLET Take 500 mg by mouth daily with breakfast . OMEPRAZOLE (PRILOSEC) 40 MG CAPSULE Take 40 mg by mouth daily . RIZATRIPTAN (MAXALT) 10 MG TABLET Take 10 mg by mouth as needed for migraine May repeat in 2 hours if needed . Modified Medications Modified Medication Previous Medication DESVENLAFAXINE SUCCINATE 25 MG TB24 desvenlafaxine succinate 25 mg Tb24 Take 1 (one) tablet (25 mg total) by mouth daily . Take 1 (one) tablet (25 mg total) by mouth daily Take 1 tab for 5 days, then take 2 tabs daily for maintenance. . Discontinued Medications No medications on file Review of Systems Constitutional: Negative for appetite change, chills, fatigue, fever and unexpected weight change. HENT: Positive for trouble swallowing. Negative for congestion, ear discharge, ear pain, postnasal drip, rhinorrhea, sinus pressure, sinus pain, sore throat, tinnitus and voice change. Eyes: Negative for discharge, itching and visual disturbance. Respiratory: Positive for choking. Negative for cough, chest tightness, shortness of breath and wheezing. Cardiovascular: Negative for chest pain and palpitations. Gastrointestinal: Negative for abdominal distention, abdominal pain, constipation, diarrhea, nausea and vomiting. Endocrine: Negative for cold intolerance and heat intolerance. Musculoskeletal: Negative for back pain. Neurological: Negative for dizziness, weakness and headaches. Psychiatric/Behavioral: Negative for agitation, decreased concentration, dysphoric mood, self-injury, sleep disturbance and suicidal ideas. The patient is not nervous/anxious. Memory impairment Objective There were no vitals filed for this visit. Estimated body mass index is 35.53 kg/m as calculated from the following: Height as of 10/05/21: 5' 4 . Weight as of 10/05/21: 93.9 kg (207 lb). Physical Exam Vitals reviewed: limited due to telephone visit. HENT: Nose: No congestion. Pulmonary: Effort: No respiratory distress. Neurological: Mental Status: She is alert and oriented to person, place, and time. Psychiatric: Mood and Affect: Mood normal. Thought Content: Thought content normal. Judgment: Judgment normal. PHQ9: OSMEL-7 Tobacco Counseling: Counseling given: Not Answered Assessment/Plan: Problem List Anxiety Successfully tapered off celexa She is currently on pristique 25mg and buspar 10mg bid- symptoms have improved significantly -will hold off on increasing pristqiue to 50mg at this time -she continues to follow up with counseling Memory impairment of gradual onset Vit b12, rpr testing was unrevealing -we discussed completing moca test at next appt Consider ct scan Dysphagia Hx of gerd and hiatal hernia -possible oropharyngeal dysphagia -discussed egd with pt and she was amenable- has appt w/ gastroenterology No follow-ups on file. For any new medications prescribed today, patient was educated about indications for the medication, how to take the medication and potential side effects of the medications. Soheila Tom MD documented in this encounter [facility] 10-09-2021 Evaluation + Plan note Associated Problem(s): Memory impairment of gradual onset No family hx of dementia Pt demonstrated remote and recent recall today without difficulty -will get vit b12, rpr test -will need to complete cognitive test at next visit, consider ct scan -I do believe her underlying anxiety and depression could be exacerbating this, she also has elements of chronic fatigue [facility] 10-09-2021 Miscellaneous Notes Associated Problem(s): Memory impairment of gradual onset No family hx of dementia Pt demonstrated remote and recent recall today without difficulty -will get vit b12, rpr test -will need to complete cognitive test at next visit, consider ct scan -I do believe her underlying anxiety and depression could be exacerbating this, she also has elements of chronic fatigue Associated Problem(s): Dysphagia Hx of gerd and hiatal hernia -possible oropharyngeal dysphagia -discussed egd with pt and she was amenable Associated Problem(s): Hypertension Elevated today- will continue to monitor as patient was very anxious -cont lisinorpil 10mg daily Associated Problem(s): Anxiety Taper celexa 40mg and discontinue- do not feel like this is controlling pt's sx Start pristique 25mg- increase to 50mg for maintenance Cont buspar 10mg bid Advised patient to continue follow up with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 Attention and perception normal. Mood and Affect: Mood is anxious. Speech: Speech normal. Behavior: Behavior normal. Thought Content: Thought content normal. Cognition and Memory: Cognition and memory normal. Judgment: Judgment normal. PHQ9: Over the last 2 weeks, how often have you been bothered by any of the following problems? Little interest or pleasure in doing things: Several days Feeling down, depressed, or hopeless: More than half the days PHQ-2 Total Score: 3 Trouble falling or staying asleep, or sleeping too much: Nearly every day Feeling tired or having little energy: Nearly every day Poor appetite or overeating: Nearly every day Feeling bad about yourself - or that you are a failure or have let yourself or your family down: Several days Trouble concentrating on things, such as reading the newspaper or watching television: Not at all Moving or speaking so slowly that other people could have noticed. Or the opposite - being so fidgety or restless that you have been moving around a lot more than usual: Not at all Thoughts that you would be better off , or of hurting yourself in some way: Not at all PHQ-9 Total Score: 13 If you checked off any problems, how difficult have these problems made it for you to do your work, take care of things at home, or get along with other people?: Somewhat difficult OSMEL-7 Over the last 2 weeks, how often have you been bothered by the following problems? Feeling nervous, anxious or on edge: Several days Not being able to stop or control worrying: Not at all Worrying too much about different things: Not at all Trouble relaxing: Several days Being so restless that it is hard to sit still: Not at all Becoming easily annoyed or irritable: Several days Feeling afraid as if something awful might happen: Several days OSMEL-7 Score: 4 Tobacco Counseling: Counseling given: Not Answered Assessment/Plan: Problem List Glucose intolerance -pt requesting updated ha1c level -last ha1c was 5.8 Pt on metformin 500mg daily Relevant Orders CBC and Differential (Completed) Comprehensive Metabolic Panel (Completed) Lipid Panel (Completed) Hemoglobin A1c (Completed) 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 For any new medications prescribed today, patient was educated about indications for the medication, how to take the medication and potential side effects of the medications. Soheila Tom MD [facility] [id number] Dept: [phone] Over the last 2 weeks, how often have you been bothered by any of the following problems? Little interest or pleasure in doing things Several days Feeling down, depressed, or hopeless More than half the days PHQ-2 Total Score 3 Trouble falling or staying asleep, or sleeping too much Nearly every day Feeling tired or having little energy Nearly every day Poor appetite or overeating Nearly every day Feeling bad about yourself - or that you are a failure or have let yourself or your family down Several days Trouble concentrating on things, such as reading the newspaper or watching television Not at all Moving or speaking so slowly that other people could have noticed. Or the opposite - being fidgety or restless that you have been moving around a lot more than usual Not at all Thoughts that you would be better off , or hurting yourself in some way Not at all PHQ-9 Total Score 13 If you checked off any problems, how difficult have these problems made it for you to do your work, take care of things at home, or get along with other people? Somewhat difficult documented in this encounter [facility] 07-27-2021 History of Present illness Narrative Images from the original note were not included. Karma Michel DPM Patient Name: Haydee Max. . Date of : 1965, 55 y.o.. Gender: female. Subjective: Patient is a pleasant 55-year-old female who presents to clinic for follow evaluation of midfoot and great toe joint pain. Patient states that her injection has significantly helped decrease her pain and discomfort. She has been using her good supportive tennis shoes at home and work shoes at work which help decrease pain with ambulation. No other pedal complaints at this time. Denies fevers, chills, nausea, vomiting, chest pain, shortness of breath, or any other constitutional symptoms. Physical Examination: BP 128/84 (BP Location: Left arm, Patient Position: Sitting, BP Cuff Size: X-large Adult) Pulse 80 Temp 98.6 F (37 C) (Oral) General Appearance: Alert, cooperative, no distress, appears stated age. Podiatric Exam Vascular: DP and PT pulses are palpable 2/4. Capillary refill time is brisk to distal digits. Skin temperature is warm to warm from proximal tibial tuberosity to distal digit. Neurological: Gross sensation is intact. Protective sensation is intact. Dermatologic: No open wounds or ulcerations Interdigital spaces are clean dry and intact. Musculoskeletal: Pain on palpation across the midfoot joints especially at the second tarsometatarsal joint, improved. Pain with first MPJ range of motion, improved. No crepitus. Ankle joint range of motion is intact. Muscle strength is 5/5 to dorsiflexors, plantar flexors, inverters and everters. Compartments soft and compressible. No calf pain Assessment: 1. Primary osteoarthritis of left foot 2. Left foot pain Imaging: Left foot 3 views weightbearing radiographs were previously ordered and interpreted as follows: Joint space narrowing noted across the midfoot joints, especially at the second tarsometatarsal joint. Joint space narrowing mildly over the first metatarsophalangeal joint. Arthritic changes noted over the talonavicular joint. No gross deformity noted. Plan: Patient was seen and evaluated. Discussed all clinical findings. I previously ordered, interpreted, and discussed right foot radiographic findings with patient as noted above. Patient has degenerative arthritis across the midfoot joints. Patient's pain has improved significantly after the steroidal injection that was given at the last clinic visit. Recommend the patient continue conservative options consisting of offloading, anti-inflammatories, wearing good supportive shoes, etc. All questions were answered to patient satisfaction. Patient understands to call with any questions or concerns. Patient has elected to follow-up as needed Karma Michel DPM, MS Podiatric Physician & Surgeon documented in this encounter [facility] 07-06-2021 History of Present illness Narrative Images from the original note were not included. NEW Patient Visit Karma Michel DPM Patient Name: Haydee Max. . Date of : 1965, 55 y.o.. Gender: female. Subjective: Patient is a pleasant 55-year-old female who presents to clinic complaining of midfoot and great toe joint pain. Patient states that this has been ongoing for several months and worsening. She states that she does wear good supportive shoes while at work. She states that the pain is aching and throbbing in nature. Denies any trauma or injury. No other pedal complaints at this time. Denies fevers, chills, nausea, vomiting, chest pain, shortness of breath, or any other constitutional symptoms. Physical Examination: BP 125/86 (BP Location: Right arm, Patient Position: Sitting) Pulse 81 Temp 98.5 F (36.9 C) (Oral) General Appearance: Alert, cooperative, no distress, appears stated age. Podiatric Exam Vascular: DP and PT pulses are palpable 2/4. Capillary refill time is brisk to distal digits. Skin temperature is warm to warm from proximal tibial tuberosity to distal digit. Neurological: Gross sensation is intact. Protective sensation is intact. Dermatologic: No open wounds or ulcerations Interdigital spaces are clean dry and intact. Musculoskeletal: Pain on palpation across the midfoot joints especially at the second tarsometatarsal joint. Pain with first MPJ range of motion. No crepitus. Ankle joint range of motion is intact. Muscle strength is 5/5 to dorsiflexors, plantar flexors, inverters and everters. Compartments soft and compressible. No calf pain Assessment: 1. Primary osteoarthritis of left foot 2. Left foot pain Imaging: Left foot 3 views weightbearing radiographs were ordered and interpreted as follows: Joint space narrowing noted across the midfoot joints, especially at the second tarsometatarsal joint. Joint space narrowing mildly over the first metatarsophalangeal joint. Arthritic changes noted over the talonavicular joint. No gross deformity noted. Plan: Patient was seen and evaluated. Discussed all clinical findings. I ordered, interpreted, and discussed right foot radiographic findings with patient as noted above. Patient has degenerative arthritis across the midfoot joints. Discussed conservative options consisting of offloading, anti-inflammatories, wearing good supportive shoes, etc. Recommended a steroid injection to the left midfoot to help alleviate pain and discomfort. Patient agreed to proceed with this. See procedure below. PROCEDURE: The injection site was prepped with alcohol . Following, a 2 cc of 1: 1 mix of Kenalog 40 mg and 0.5% Marcaine plain was injected into the dorsally to the second tarsometatarsal. Patient tolerated the injection well. A Band-Aid was applied at the injection site. All questions were answered to patient satisfaction. Patient understands to call with any questions or concerns. Follow-up in 3 weeks for evaluation. Karma Michel DPM, MS Podiatric Physician & Surgeon documented in this encounter [facility] 12-07-2020 History of Present illness Narrative Here for f/u recent hospitalization at [facility] for shortness of breath/Covid. She was found to have aortic arch dilation and they recommend repeat CT in 1 year. She has had increased BP - she took two lisinopril yesterday. She was given an albuterol inhaler and is not sure how helpful that is. Overall she is a little better than she was, still has some mental fuzziness. -[facility] Work Phone: [facility] Primary osteoarthritis of left foot- Primary Left foot pain Pain in soft tissues of limb [facility] Acute mucoid otitis media of right ear- Primary Glucose intolerance Intestinal disaccharidase deficiencies and disaccharide malabsorption Anxiety Anxiety state, unspecified Vitamin D deficiency Defect of aortic [facility] Diagnosis Anxiety- Primary Anxiety state, unspecified Memory impairment of gradual onset Dysphagia, unspecified type Hypertension, unspecified type [facility] Diagnosis Anxiety Anxiety state, unspecified Memory impairment of gradual onset Dysphagia, unspecified type documented in this encounter [facility] note* Diagnosis Heartburn- Primary Dysphagia, unspecified type Heartburn [facility] Diagnosis Anxiety Anxiety state, unspecified Hypertension, unspecified type [facility] Diagnosis Hypertension, unspecified type- Primary documented in this encounter [facility] note* Diagnosis Hypertension, unspecified type- Primary [facility] COVID-19- Primary [facility] Diagnosis Anxiety Anxiety state, unspecified Glucose intolerance Intestinal disaccharidase deficiencies and disaccharide malabsorption Hypertension, unspecified type [facility] Diagnosis Anxiety- Primary Anxiety state, unspecified Hypertension, unspecified type Hyperlipidemia, unspecified hyperlipidemia type Glucose intolerance Intestinal disaccharidase deficiencies and disaccharide malabsorption [facility]* Diagnosis Neck muscle spasm- Primary [facility] Diagnosis Neck muscle spasm- Primary Left sciatic nerve pain [facility] Diagnosis Neck muscle spasm- Primary Left sciatic nerve pain [facility] Diagnosis Neck muscle spasm- Primary Left sciatic nerve pain [facility] Diagnosis Neck muscle spasm- Primary Left sciatic nerve pain [facility] Diagnosis Hyperlipidemia, unspecified hyperlipidemia type Hypertension, unspecified type Anxiety Anxiety state, unspecified Glucose intolerance Intestinal disaccharidase deficiencies and disaccharide malabsorption [facility] NarrativeHere for routine f/u HTN, high chol, GERD, NEFTALI (not tolerating CPAP - looking into dental appliance), prediabetes, breast cancer, arthritis, aortic dilatation. She states that she has been out of hermedication for about a month. She states that overall she is doing ok, but does need to get back onher medications.-[facility] Work Phone: Assessments Diagnosis Neck pain on left side Acute pain of left shoulder Diagnosis Neck pain on left side Acute pain of left shoulder Diagnosis Neck pain on left side Acute pain of left shoulder Diagnosis Dyspnea- Primary Other dyspnea and respiratory abnormality Shortness of breath Ascending aortic aneurysm (HCC) Thoracic aneurysm without mention of rupture Hypertension Unspecified essential hypertension Obesity (BMI 30-39.9) Type 2 diabetes mellitus (HCC) Defect of aortic arch Diagnosis COVID-19- Primary Summary Purpose Family History No Family History Records Found uncle Name Dates Details Family history of malignant neoplasm of colon(V16.0, Z80.0) Status:Active Mother Name Dates Details Family history of breast can cer(V16.3, Z80.3) Status:Active Brother Name Dates Details Family history of Follicular lymphoma(202.00, C82.90) Status:Active uncle Name Dates Details Family history of malignant neoplasm of colon(V16.0, Z80.0) Status:Active Mother Name Dates Details Family history of breast can cer(V16.3, Z80.3) Status:Active Brother Name Dates Details Family history of Follicular lymphoma(202.00, C82.90) Status:Active Grandparent Name Dates Details Family history of osteoporos is(V17.81, Z82.62) Status:Active Family history of asthma(V17 .5, Z82.5) Status:Active uncle Name Dates Details Family history of malignant neoplasm of colon(V16.0, Z80.0) Status:Active Mother Name Dates Details Family history of breast can cer(V16.3, Z80.3) Status:Active Family history of malignant neoplasm(V16.9, Z80.9) Status:Active Family history of hypertensi on(V17.49, Z82.49) Status:Active Family history of osteoporos is(V17.81, Z82.62) Status:Active Family history of asthma(V17 .5, Z82.5) Status:Active Family history of Breast car cinoma, female(174.9, C50.919) Status:Active Family history of hyperlipid emia(V18.19, Z83.438) Status:Active Father Name Dates Details Family history of cerebrovas cular accident (CVA)(V17.1, Z82.3) Status:Active Brother Name Dates Details Family history of Follicular lymphoma(202.00, C82.90) Status:Active Family history of malignant neoplasm(V16.9, Z80.9) Status:Active Grandparent Name Dates Details Family history of osteoporos is(V17.81, Z82.62) Status:Active Family history of asthma(V17 .5, Z82.5) Status:Active uncle Name Dates Details Family history of malignant neoplasm of colon(V16.0, Z80.0) Status:Active Mother Name Dates Details Family history of malignant neoplasm(V16.9, Z80.9) Status:Active Family history of hypertensi on(V17.49, Z82.49) Status:Active Family history of osteoporos is(V17.81, Z82.62) Status:Active Family history of asthma(V17 .5, Z82.5) Status:Active Family history of Breast car cinoma, female(174.9, C50.919) Status:Active Family history of hyperlipid emia(V18.19, Z83.438) Status:Active Father Name Dates Details Family history of cerebrovas cular accident (CVA)(V17.1, Z82.3) Status:Active Brother Name Dates Details Family history of Follicular lymphoma(202.00, C82.90) Status:Active Family history of malignant neoplasm(V16.9, Z80.9) Status:Active Grandparent Name Dates Details Family history of osteoporos is(V17.81, Z82.62) Status:Active Family history of asthma(V17 .5, Z82.5) Status:Active uncle Name Dates Details Family history of malignant neoplasm of colon(V16.0, Z80.0) Status:Active Mother Name Dates Details Family history of malignant neoplasm(V16.9, Z80.9) Status:Active Family history of hypertensi on(V17.49, Z82.49) Status:Active Family history of osteoporos is(V17.81, Z82.62) Status:Active Family history of asthma(V17 .5, Z82.5) Status:Active Family history of Breast car cinoma, female(174.9, C50.919) Status:Active Family history of hyperlipid emia(V18.19, Z83.438) Status:Active Father Name Dates Details Family history of cerebrovas cular accident (CVA)(V17.1, Z82.3) Status:Active Brother Name Dates Details Family history of Follicular lymphoma(202.00, C82.90) Status:Active Family history of malignant neoplasm(V16.9, Z80.9) Status:Active Unknown Family Member Name Dates Details Follicular lymphoma: Brother Status:Active Family history of malignant neoplasm of colon: Uncle(V16.0, Z80.0) Status:Active Family history of malignant neoplasm: Mother, Brother(V16.9, Z80.9) Status:Active Family history of hypertensi on: Mother(V17.49, Z82.49) Status:Active Family history of osteoporos is: Mother, Grandparent(V17.81, Z82.62) Status:Active Family history of cerebrovas cular accident (CVA): Father(V17.1, Z82.3) Status:Active Family history of asthma: Mo ther, Grandparent(V17.5, Z82.5) Status:Active Breast carcinoma, female: Mo ther Status:Active Family history of hyperlipid emia: Mother(V18.19, Z83.438) Status:Active Unknown Family Member Name Dates Details Follicular lymphoma: Brother Status:Active Family history of malignant neoplasm of colon: Uncle(V16.0, Z80.0) Status:Active Family history of malignant neoplasm: Mother, Brother(V16.9, Z80.9) Status:Active Family history of hypertensi on: Mother(V17.49, Z82.49) Status:Active Family history of osteoporos is: Mother, Grandparent(V17.81, Z82.62) Status:Active Family history of cerebrovas cular accident (CVA): Father(V17.1, Z82.3) Status:Active Family history of asthma: Mo ther, Grandparent(V17.5, Z82.5) Status:Active Breast carcinoma, female: Mo ther Status:Active Family history of hyperlipid emia: Mother(V18.19, Z83.438) Status:Active Unknown Family Member Name Dates Details Follicular lymphoma: Brother Status:Active Family history of malignant neoplasm of colon: Uncle(V16.0, Z80.0) Status:Active Family history of malignant neoplasm: Mother, Brother(V16.9, Z80.9) Status:Active Family history of hypertensi on: Mother(V17.49, Z82.49) Status:Active Family history of osteoporos is: Mother, Grandparent(V17.81, Z82.62) Status:Active Family history of cerebrovas cular accident (CVA): Father(V17.1, Z82.3) Status:Active Family history of asthma: Mo ther, Grandparent(V17.5, Z82.5) Status:Active Breast carcinoma, female: Mo ther Status:Active Family history of hyperlipid emia: Mother(V18.19, Z83.438) Status:Active Unknown Family Member Name Dates Details Family history of hyperlipid emia: Mother(V18.19, Z83.438) Status:Active Breast carcinoma, female: Mo ther Status:Active Family history of asthma: Mo ther, Grandparent(V17.5, Z82.5) Status:Active Family history of cerebrovas cular accident (CVA): Father(V17.1, Z82.3) Status:Active Family history of osteoporos is: Mother, Grandparent(V17.81, Z82.62) Status:Active Family history of hypertensi on: Mother(V17.49, Z82.49) Status:Active Family history of malignant neoplasm: Mother, Brother(V16.9, Z80.9) Status:Active Family history of malignant neoplasm of colon: Uncle(V16.0, Z80.0) Status:Active Follicular lymphoma: Brother Status:Active Unknown Family Member Name Dates Details Follicular lymphoma: Brother Status:Active Family history of malignant neoplasm of colon: Uncle(V16.0, Z80.0) Status:Active Family history of malignant neoplasm: Mother, Brother(V16.9, Z80.9) Status:Active Family history of hypertensi on: Mother(V17.49, Z82.49) Status:Active Family history of osteoporos is: Mother, Grandparent(V17.81, Z82.62) Status:Active Family history of cerebrovas cular accident (CVA): Father(V17.1, Z82.3) Status:Active Family history of asthma: Mo ther, Grandparent(V17.5, Z82.5) Status:Active Breast carcinoma, female: Mo ther Status:Active Family history of hyperlipid emia: Mother(V18.19, Z83.438) Status:Active Advance Directives No Advanced Directives Records FoundDocuments on File Type Date Recorded 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 She has requested a time limit of 10 minutes Latest Code Status on File Date Activated Date Inactivated Comments 07/28/2020 8:43 PM 07/30/2020 7:20 PM Patient is a full code but states she does not desire extensive amount of time spent on resuscitation. She has requested a time limit of 10 minutes Latest Code Status on File Code Status Date Activated Date Inactivated Comments Full Code 07/28/2020 8:43 PM 07/30/2020 7:20 PM Jef dye is a full code but states she does not desire extensive amount of time spent on resuscitation. She has requested a time limit of 10 minutes History of Present Illness * Lakhwinder Castro, PT - 01/26/2017 7:00 AM EDT Formatting of this note may be different from the original. [facility] OUTPATIENT REHABILITATION DAILY TREATMENT NOTE Today's Date 01/26/2017 Patient Name: Haydee Max Date of : 1965 Current Visit #: 2 Authorized Visits: 30 Case Name: Neck, thoracic and shoulder History: Pre-Treatment Pain Scale: Pain improving but still having increased pain with prolonged computer work or looking down Symptoms: gradually improved Functional Diagnosis: SNOMED CT(R) 1. Neck pain on left side NECK PAIN 2. Acute pain of left shoulder SHOULDER PAIN Clinical Information: Subjective: Gradually improving. Still c/o pain as above. Pt doing HEP consistently. Improved sleepat night. Objective: TTP through L side C/S and UT at 2-5. Pt with good upright posture. Treatments: Physical Therapy Exercise Log - 01/26/17 0700 OTHER Contraindications/Precautions/Notes / Manual Therapy (01869) Intervention SOR, Supine STM to bilateral C/S paraspinals and light rotation stretching L and R Rotation Parameters light to medium pressure Time 15 Additional Exercises Add more exercises? Yes Modalities Modalities Ultrasound Time 12 Comments sitting, L UT and L side of C/S and C/S paraspinals PT Treatment Times Manual Therapy 15 Modalities 12 Direct Treatment Time 27 Goals: Physical Therapy Changing & Maintaining Body Position:Pt will be able to work on computer without pain in neck > 2/10 in 3 weeks. Pt will be able to sleep and wake in AM without pain in neck > 2/10 in 3 weeks. Impairment Specific Goals:Increase B cervical rotation from 45 degrees to 60 degrees without pain in 3 weeks. Additional Goals:Patient will demonstrate improved FOTO functional outcome survey score from 69 to 72 in order to indicate improved functional mobility in 3 weeks. Goal status: established. Patient Education provided: Pt educated on rationale for use of US and STM/MFR. Post-Treatment Pain Scale: No increased c/o pain following treatment Clinical Impression: Pt demonstrates improving ROM and decreased c/o pain through C/S overall. Pt continues to demonstrate decreased functional C/S AROM and increased c/o pain and TTP through L UT and L side of C/S. Pt will continue to be progressed with strengthening and flexibility ex. Plan for Next Visit: Continue with US, manual therapy and consider doing deep C/S strengthening forHEP. Lakhwinder Castro, PT State License, [place]. [phone] in this encounter* Lakhwinder Castro, PT - 01/31/2017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 Top Result Value Ref Range Extra Tube Hold for add-ons. Light Blue Top Result Value Ref Range Extra Tube Hold for add-ons. BMP Result Value Ref Range Sodium 139 135 - 145 mmol/L Potassium 3.9 3.5 - 5.1 mmol/L Chloride 108 98 - 108 mmol/L Bicarbonate 24 21 - 32 mmol/L Anion Gap 11 10 - 20 mmol/L Glucose 113 (H) 65 - 99 mg/dL BUN 15 8 - 25 mg/dL Creatinine 0.80 0.40 - 1.10 mg/dL eGFR 83 >=60 mL/min/1.73 m2 BUN/Creatinine Ratio 18.8 10.0 - 20.0 Calcium 9.4 8.4 - 10.2 mg/dL Troponin Result Value Ref Range Troponin I <15 <=45 ng/L Troponin I Interpretation Normal EKG 12-lead Result Value Ref Range Ventricular Rate 71 BPM Atrial Rate 71 BPM P-R Interval 184 ms QRS Duration 76 ms Q-T Interval 396 ms QTC Calculation (Bezet) 430 ms P [place] 43 degrees R [place] 17 degrees T [place] 39 degrees POC Venous Blood Gas Panel-Pulm Result Value Ref Range pH, Venous 7.43 (H) 7.32 - 7.42 pCO2, Anthony 40.5 (L) 41.0 - 51.0 mm Hg pO2, Anthony 29 25 - 40 mm Hg Base Excess, Anthony 2.3 (H) -2.0 - 2.0 HCO3, Anthony 26.8 24.0 - 28.0 mmol/L Hemoglobin, Blood Gas 12.4 12.0 - 16.0 g/dL Hematocrit, Calculated 38.1 36.0 - 46.0 % O2 Sat, Anthony 55.0 40.0 - 70.0 % FIO2 0 IMV 0 TIDAL VOLUME 0 RESP RATE 0 CBC Auto Differential Result Value Ref Range WBC 6.43 4.50 - 11.00 K/mcL RBC 3.98 (L) 4.00 - 5.20 M/mcL Hemoglobin 11.9 (L) 12.0 - 16.0 g/dL Hematocrit 37.3 36.0 - 46.0 % MCV 93.7 80.0 - 100.0 fL MCH 29.9 26.0 - 34.0 pg MCHC 31.9 31.0 - 37.0 g/dL Platelets 190 150 - 400 K/mcL RDW - CV 13.4 11.6 - 14.8 % MPV 10.1 9.4 - 12.4 fL Neutrophils 63.1 % Lymphocytes 25.5 % Monocytes 9.2 % Eosinophils 1.7 % Basophils 0.3 % IG Percent 0.20 % Neutrophils Abs 4.06 1.70 - 7.00 K/mcL Lymphocytes Abs 1.64 0.90 - 4.00 K/mcL Monocytes Abs 0.59 0.30 - 0.90 K/mcL Eosinophils Abs 0.11 0.00 - 0.50 K/mcL Basophils Abs 0.02 0.00 - 0.30 K/mcL IG Absolute 0.01 0.00 - 0.30 K/mcL Nucleated RBC 0.0 % Nucleated RBC Abs 0.00 0.00 - 0.00 K/mcL CT Pulmonary Arteries Preliminary Result 1. No acute PE is identified. Main pulmonary artery normal caliber size. 2. Ectasia of the ascending aorta with borderline fusiform aneurysmal dilatation of the proximal aortic arch measuring 3.4 cm in largest diameter. 3. Borderline heart size. 4. Stable scarring in the inferior segment of the lingula. 5. Lumpectomy scar with a seroma seen in the right breast. GJT/jcw Workstation ID: [id number] Procedures MDM Number of Diagnoses or Management Options Ascending aortic aneurysm (HCC) Shortness of breath Diagnosis management comments: This is a 54-year-old who has been recently diagnosed with COVID-19 on June 29 coming into the emergency room with persistent and somewhat worsening shortness of breath since then. Patient states she just feels very tired, short of breath on exertion for several weeks. During the time of examination as patient lays in bed as she does not at all appear to be in respiratory distress and her vitals apart from slightly elevated blood pressure is completely unremarkable. In particular her oxygen saturation is high 90s to 100% on room air. She is not tachypneic or tachycardic and does not show increased work of breathing. EKG obtained here reveals normal sinus rhythm with particular rate of [address] elevation or depression. Basic chemistry, troponin and CBC lab results are completely unrevealing. Venous gas lab results is normal including pH of 7.43 and PCO2 of 40.5 and normal bicarb 26.8. CTPA is complete unremarkable with the exception of incidental finding of aortic ectasia of the ascending measuring 4.5 x 4.4 cm. Patient states she is not aware of this. However I do not believe this is related to patient's shortness of breath patient has no chest pain or neurological symptoms, claudication. She has a good pulses to all extremities. Patient wants to be admitted stating that she feels she just cannot deal with the shortness of breath at home. After consultation with the hospitalist the patient is admitted for further care. The aortic aneurysm along with the risks associated with it including sudden cardiac due to acute rupture was discussed with the patient. Close is also made aware of the aortic aneurysm as well. The patient has been informed that they may have pre-hypertension or hypertension based on a blood pressure reading in the Emergency Department. I recommend that the patient call the primary care provider listed on their discharge instructions or a physician of their choice as soon as possible to arrange follow-up in the next 4 weeks for further evaluation of possible pre-hypertension or hypertension. . Clinical Impression: 1. Shortness of breath 2. Ascending aortic aneurysm (HCC) ED Disposition ED Disposition Condition Comment Hospitalize Phone call required?: No Follow-up Information Follow-up information has not been specified. Contact information for after-discharge care Follow-up information has not been specified. Grant Naranjo MD 07/28/201957 Grant Naranjo MD 07/28/201958 Pt had covid aprox one month ago, complains of residual shortness of breath and periods of tachycardia since her diagnosis, states her shortness of breath has affected her work. documented in this encounter ICE WATER GIVEN TO PT. PER HER REQUEST. PT. SAYS THANK YOU. NO DISTRESS NOTED. PT. RESTING QUIETLY ON CART IN ROOM. REPORT GIVEN TO MARIAN BUSTOS. ED PROVIDER NOTE [facility] NAME: Haydee Max AGE: 54 y.o. : 1965 VISIT DATE: 07/05/2020 CSN: [id number] PCP: June Miranda MD Chief Complaint Patient presents with Shortness of Breath This is a 54-year-old who is that she was diagnosed with COVID-19 on Tuesday locally elsewhere coming to emergency room with persistent shortness of breath. Patient states her symptoms started more than 10 days ago with cough, runny nose, nasal congestion with headache and fatigue. She feels shortness of breath is worsening stating that even when I am sitting and doing nothing I am short of breath. Denies chest or abdominal pain. She denies history of asthma or COPD or emphysema. Patient denies known coronary artery disease or prior history of DVT or PE or acute myocardial infarction Past Medical History: Diagnosis Date Breast cancer (HCC) Past Surgical History: Procedure Laterality Date HYSTERECTOMY LUMPECTOMY SINUS SURGERY SPINE SURGERY C4-7- with cadaver bone; titanium plate; disc replaced- 2011. THYROID SURGERY History reviewed. No pertinent family history. Social History Socioeconomic History Marital status: Spouse name: Not on file Number of children: Not on file Years of education: Not on file Highest education level: Not on file Occupational History Not on file Social Needs Financial resource strain: Not on file Food insecurity Worry: Not on file Inability: Not on file Transportation needs Medical: Not on file Non-medical: Not on file Tobacco Use Smoking status: Never Smoker Smokeless tobacco: Never Used Substance and Sexual Activity Alcohol use: Yes Comment: OCCAISIONALLY Drug use: Not Currently Sexual activity: Not on file Lifestyle Physical activity Days per week: Not on file Minutes per session: Not on file Stress: Not on file Relationships Social connections Talks on phone: Not on file Gets together: Not on file Attends bahai service: Not on file Active member of club or organization: Not on file Attends meetings of clubs or organizations: Not on file Relationship status: Not on file Other Topics Concern Not on file Social History Narrative Not on file Previous Medications Medication Sig UNKNOWN Med Name: lisinopril; metformin; estrogen pill; another pill starts with O. For swallowing. . No Known Allergies Review of Systems Respiratory: Positive for shortness of breath. All other systems reviewed and are negative. Patient Vitals for the past 24 hrs: BP Temp Temp src Pulse Resp SpO2 Height Weight 07/05/20 1830 131/87 64 97 % 07/05/20 1754 (!) 142/69 98.8 F (37.1 C) Oral 71 18 98 % 5' 4 85.7 kg (189 lb) Physical Exam Vitals signs and nursing note reviewed. Constitutional: General: She is not in acute distress. Appearance: She is not ill-appearing, toxic-appearing or diaphoretic. HENT: Head: Normocephalic and atraumatic. Neck: Musculoskeletal: Normal range of motion and neck supple. Cardiovascular: Rate and Rhythm: Normal rate and regular rhythm. Pulses: Normal pulses. No decreased pulses. Heart sounds: Normal heart sounds. No murmur. No friction rub. Pulmonary: Effort: Pulmonary effort is normal. No tachypnea, accessory muscle usage or respiratory distress. Breath sounds: Wheezing present. No decreased breath sounds, rhonchi or rales. Abdominal: General: Bowel sounds are normal. Palpations: Abdomen is soft. Tenderness: There is no abdominal tenderness. There is no guarding or rebound. Musculoskeletal: Normal range of motion. Skin: General: Skin is warm and dry. Neurological: General: No focal deficit present. Laboratory & Radiographic Imaging (if done): Results for orders placed or performed during the hospital encounter of 07/05/20 BMP Result Value Ref Range Sodium 140 135 - 145 mmol/L Potassium 3.9 3.5 - 5.1 mmol/L Chloride 111 (H) 98 - 108 mmol/L Bicarbonate 24 21 - 32 mmol/L Anion Gap 9 (L) 10 - 20 mmol/L Glucose 146 (H) 65 - 99 mg/dL BUN 14 8 - 25 mg/dL Creatinine 0.79 0.40 - 1.10 mg/dL eGFR 84 >=60 mL/min/1.73 m2 BUN/Creatinine Ratio 17.7 10.0 - 20.0 Calcium 9.1 8.4 - 10.2 mg/dL PT/INR Result Value Ref Range Protime (PT) 13.3 11.8 - 14.3 seconds INR 1.0 0.8 - 1.1 CBC Auto Differential Result Value Ref Range WBC 5.12 4.50 - 11.00 K/mcL RBC 3.98 (L) 4.00 - 5.20 M/mcL Hemoglobin 12.2 12.0 - 16.0 g/dL Hematocrit 36.6 36.0 - 46.0 % MCV 92.0 80.0 - 100.0 fL MCH 30.7 26.0 - 34.0 pg MCHC 33.3 31.0 - 37.0 g/dL Platelets 205 150 - 400 K/mcL RDW - CV 12.6 11.6 - 14.8 % MPV 10.2 9.4 - 12.4 fL Neutrophils 80.6 % Lymphocytes 14.1 % Monocytes 4.5 % Eosinophils 0.0 % Basophils 0.2 % IG Percent 0.60 % Neutrophils Abs 4.13 1.70 - 7.00 K/mcL Lymphocytes Abs 0.72 (L) 0.90 - 4.00 K/mcL Monocytes Abs 0.23 (L) 0.30 - 0.90 K/mcL Eosinophils Abs 0.00 0.00 - 0.50 K/mcL Basophils Abs 0.01 0.00 - 0.30 K/mcL IG Absolute 0.03 0.00 - 0.30 K/mcL Nucleated RBC 0.0 % Nucleated RBC Abs 0.00 0.00 - 0.00 K/mcL XR Chest 1 View Final Result No acute cardiopulmonary disease. Workstation ID: [id number] Procedures MDM Number of Diagnoses or Management Options COVID-19 Diagnosis management comments: Patient presents emergency room with complaints of shortness of breath that she state she is having even when she is at rest. However, patient's vitals are completely unremarkable and she is not in respiratory distress during her ED stay. CBC and basic chemistry lab results obtained here are completely unremarkable. X-ray is unremarkable. Once patient was shared with these normal results including normal chest x-ray she would like to go home. Patient was offered to be ambulated to see how her oxygen saturation tolerates during activity. She declined that stating you can discharge me home. I appreciate you looking after me. Patient's oxygen saturation stayed in the high 90s on room air. Patient advised to return to ER if she develops persistent shortness of breath or if she feels she is getting quite ill. The patient has been informed that they may have pre-hypertension or hypertension based on a blood pressure reading in the Emergency Department. I recommend that the patient call the primary care provider listed on their discharge instructions or a physician of their choice as soon as possible to arrange follow-up in the next 4 weeks for further evaluation of possible pre-hypertension or hypertension. . Clinical Impression: 1. COVID-19 ED Disposition ED Disposition Condition Comment Discharge Stable Haydee Max discharged to home/self care in stable condition. Follow-up Information Follow-up information has not been specified. Contact information for after-discharge care Follow-up information has not been specified. Grant Naranjo MD 07/05/201919 PT PRESENTS WITH C/O SOB THAT HAS BEEN ONGOING FOR 4 DAYS BUT WORSENED TODAY. PT WAS POSITIVE FOR COVID TUES. 07/01 AT [facility]. PT C/O PAIN L LOWER RIB CAGE. ALSO C/O LOSS OF TASTE. DENIES ANY OTHER SXS AT THIS TIME. documented in this encounter Quick Note - Jennie Carrera RN - 07/30/2020 3:06 PM ESTPlan of Care - Corry Tyler RN - 07/30/2020 2:00 AM ESTPlan of Care - Renetta Arreola RN - 07/29/2020 3:46 PM EST Miscellaneous Notes (unrecog nized section and content) Seen by [place] to Home, Meds to bedside, reviewed AVS, verbalizes understanding, denies any further needs. POC reviewed and updated. Problem: Actual or potential alteration in health Goal: Absence of healthcare acquired conditions Outcome: Partially Met Goal: Knowledge of Interdisciplinary Plan of Care Outcome: Partially Met Goal: Knowledge of Enviroment Outcome: Partially Met Problem: Pressure Ulcer - Risk of Goal: Absence of pressure ulcer Outcome: Partially Met Associated Problem(s): Defect of aortic arch Patient came into the ER with due to worsening shortness of breath after recent Covid infection. Incidental finding of aortic arch dilation was found on CT of the pulmonary arteries. Patient is asymptomatic from the etasia of the proximal aortic arch. In reviewing the CT the proximal aortic arch measures 3.4 cm which is under the 4 cm lilia and is therefore not considered an aneurysm. At this point there is no vascular surgery indicated nor planned. Patient could be followed up with cardiothoracic specialist who would be the service he would repair this if needed in the future. Encourage blood pressure control with patient. She is a non-smoker and encouraged her to remain this way. Vascular surgery will sign off patient at this time. POC reviewed documented in this encounter Care Teams (unrecognized sec tion and content) Supply Chain Development Manager Relationship Specialty Start Date End Date June Miranda MD [address] [place] [id number] PCP - General Family Medicine 02/28/19 Supply Chain Development Manager Relationship Specialty Start Date End Date Soheila Tom MD [address] [id number] PCP - General Internal Medicine 09/07/21 Supply Chain Development Manager Relationship Specialty Start Date End Date Soheila Tom MD [address] [place] [id number] PCP - General Internal Medicine 09/07/21 Supply Chain Development Manager Relationship Specialty Start Date End Date Soheila Tom MD [address] [place] [id number] PCP - General Internal Medicine 09/07/21 Supply Chain Development Manager Relationship Specialty Start Date End Date Soheila Tom MD [address] [place], [place] [id number] PCP - General Internal Medicine 09/07/21 Soheila Tom MD [address] [place], [place] [id number] Referring Physician Internal Medicine 10/16/21 Supply Chain Development Manager Relationship Specialty Start Date End Date Soheila Tom MD [address] [place] [id number] PCP - General Internal Medicine 09/07/21 Soheila Tom MD [address] [place] [id number] Referring Physician Internal Medicine 10/16/21 Supply Chain Development Manager Relationship Specialty Start Date End Date Soheila Tom MD [address] [place] [phone] PCP - General Internal Medicine 09/07/21 Soheila Tom MD [address] [place] [address] [phone] Referring Physician Internal Medicine 10/16/21 Supply Chain Development Manager Relationship Specialty Start Date End Date Soheila Tom MD [address] [id number] PCP - General Internal Medicine 09/07/21 Soheila Tom MD [facility] [address] [address] Referring Physician Internal Medicine 10/16/21 Supply Chain Development Manager Relationship Specialty Start Date End Date Soheila Tom MD [facility] [address] [address] PCP - General Internal Medicine 09/07/21 Soheila Tom MD [address] [place] [address] 54433 Referring Physician Internal Medicine 10/16/21 Supply Chain Development Manager Relationship Specialty Start Date End Date Soheila Tom MD [address] [place], [place] [phone] PCP - General Internal Medicine 09/07/21 Soheila Tom MD [address] [place] [address] [phone] PCP - ANKITA Attributed Provider - [employer] 12/19/19 06/19/50 Soheila Tom MD [address] [place] [address] [phone] Referring Physician Internal Medicine 10/16/21 Supply Chain Development Manager Relationship Specialty Start Date End Date Soheila Tom MD [facility] [address] [address] PCP - General Internal Medicine 09/07/21 Soheila Tom MD [address] [place] [address] [phone] PCP - ANKITA Attributed Provider - [employer] 12/19/19 06/19/50 Soheila Tom MD [address] [place] [address] [phone] Referring Physician Internal Medicine 10/16/21 Supply Chain Development Manager Relationship Specialty Start Date End Date Soheila Tom MD [address] [place] [address] [phone] PCP - General Internal Medicine 09/07/21 Soheila Tom MD [address] [place] [address] [id number] PCP - ANKITA Attributed Provider - [employer] 12/19/19 06/19/50 Soheila Tom MD [address] [place] [address] 45919 Referring Physician Internal Medicine 10/16/21 Supply Chain Development Manager Relationship Specialty Start Date End Date Soheila Tom MD [address] [place] [address] 46481 PCP - General Internal Medicine 09/07/21 Soheila Tom MD [address] [place] [address] [phone] PCP - ANKITA Attributed Provider - [employer] 12/19/19 06/19/50 Soheila Tom MD [address] [place] [address] [phone] Referring Physician Internal Medicine 10/16/21 Supply Chain Development Manager Relationship Specialty Start Date End Date Soheila Tom MD [address] [place] [address] 15960 PCP - General Internal Medicine 09/07/21 Soheila Tom MD [address] [place] [address] [phone] PCP - ANKITA Attributed Provider - [employer] 12/19/19 06/19/50 Soheila Tom MD [facility] [address] [address] Referring Physician Internal Medicine 10/16/21 Supply Chain Development Manager Relationship Specialty Start Date End Date Soheila Tom MD [address] [place] [address] [phone] PCP - General Internal Medicine 09/07/21 Soheila Tom MD [address] [place] [address] [phone] PCP - ANKITA Attributed Provider - [employer] 12/19/19 06/19/50 Soheila Tom MD [address] [place] [address] 76164 Referring Physician Internal Medicine 10/16/21 Supply Chain Development Manager Relationship Specialty Start Date End Date Soheila Tom MD [address] [place] [address] 13021 PCP - General Internal Medicine 09/07/21 Soheila Tom MD [address] [place] [address] 34654 PCP - ANKITA Attributed Provider - [employer] 12/19/19 06/19/50 Soheila Tom MD [address] [place] [address] [phone] Referring Physician Internal Medicine 10/16/21 Supply Chain Development Manager Relationship Specialty Start Date End Date Soheila Tom MD [address] [place] [address] 54075 PCP - General Internal Medicine 09/07/21 Soheila Tom MD [address] [place] [address] 16742 PCP - ANKITA Attributed Provider - [employer] 12/19/19 06/19/50 Soheila Tmo MD [address] [place] [address] Referring Physician Internal Medicine 10/16/21 Supply Chain Development Manager Relationship Specialty Start Date End Date Soheila Tom MD [address] [place] [address] PCP - General Internal Medicine 09/07/21 Soheila Tmo MD [address] [place] [address] PCP - ANKITA Attributed Provider - [employer] 12/19/19 06/19/50 Soheila Tom MD [address] [place] [address] Referring Physician Internal Medicine 10/16/21 Supply Chain Development Manager Relationship Specialty Start Date End Date Soheila Tom MD [address] [place] [address] PCP - General Internal Medicine 09/07/21 Soheila Tom MD [address] [place] [address] PCP - ANKITA Attributed Provider - [employer] 12/19/19 06/19/50 Soheila Tom MD [address] [place], [place] [phone] Referring Physician Internal Medicine 10/16/21 Supply Chain Development Manager Relationship Specialty Start Date End Date Soheila Tom MD [address] [address] PCP - General Internal Medicine 09/07/21 Soheila Tom MD [address] [phone] PCP - ANKITA Attributed Provider - [employer] 12/19/19 06/19/50 Soheila Tom MD [address] [place] [phone] Referring Physician Internal Medicine 10/16/21 Supply Chain Development Manager Relationship Specialty Start Date End Date Soheila Tom MD [address] [place] [address] [phone] PCP - General Internal Medicine 09/07/21 Koko Johnson MD [address] [place] [address] 37415 PCP - ANKITA Attributed Provider - [employer] 12/19/19 06/19/50 Soheila Tom MD [address] [place] [address] [phone] Referring Physician Internal Medicine 10/16/21 FOR RECORDS PERTAINING TO PATIENTS WHO ARE OR HAVE BEEN ENROLLED IN A CHEMICAL DEPENDENCY/SUBSTANCEABUSE PROGRAM, SOME INFORMATION MAY BE OMITTED. This clinical summary was aggregated from multiple sources. Caution should be exercised in using it in the provision of clinical care. This summary normalizes information from multiple sources, and as a consequence, information in this document may materially change the coding, format and clinical context of patient data. In addition, data may be omitted in some cases. CLINICAL DECISIONS SHOULD BE BASED ON THE PRIMARY CLINICAL RECORDS. [employer] [facility]. provides no warranty or guarantee of the accuracy or completeness of information in this document.
== END | disposition home or self-care (01) ==
LOC: OPBI 10:30
PROVIDERS: PCP Internal Medicine; Referring Provider Internal Medicine Medical Oncology; Visit Provider Internal Medicine Medical Oncology
DX: Z12.31 Encounter for screening mammogram for malignant neoplasm of breast (principal); Z85.3 Personal history of malignant neoplasm of breast; Z80.3 Family history of malignant neoplasm of breast
CPT/HCPCS: 77063; 77067

== ENCOUNTER → 2023-09-15 | Outpatient (CLI) | payer OTHER, SELFPAY ==
--- NOTE | 2023-09-15 08:08 | MRI_ITS ---
STUDY: MRI CERVICAL SPINE WITHOUT CONTRAST REASON FOR EXAM: Female, 58 years old. Pain TECHNIQUE: Standardized fat and water weighted pulse sequences were obtained in the sagittal and axial planes. COMPARISON: None FINDINGS: Normal foramen magnum and brainstem-cervical cord junction. Normal craniovertebral junction. Normal anterior atlantoaxial articulation. Normal odontoid process. Straightening of normal lordotic curvature.. Normal vertebral bodies and posterior osseous elements. C2-3: Normal endplates. Normal disc height, signal and tiny central disc protrusion. Normal central canal and intervertebral neural foramina. C3-4: Grade 1 spondylolisthesis. Normal endplates. Normal disc height, signal and minimal bulging disc osteophyte complex. Normal central canal and intervertebral neural foramina. C4-5: Normal endplates. Normal disc height, signal and mild bulging of the disc. Normal central canal and intervertebral neural foramina. C5-6: Postop change status post anterior fusion.. Normal central canal and intervertebral neuroforamina. C6-7: Status post anterior fusion with posterior osteophyte protrusion narrowing the spinal canal and mildly compressing the cord.. Normal intervertebral neural foramina. C7-T1: Normal endplates. Normal disc height, signal and tiny central disc protrusion.. Normal central canal and intervertebral neural foramina. Normal cervical cord. Normal visualized soft tissue structures. MRI/Spine Cervical (Routine) IMPRESSION: No evidence for acute fracture or other significant bony pathology. Postop change status post anterior fusion at C5-6 and C6-7. There is a posterior osteophyte protrusion at C7 narrowing the central canal and mildly compressing the cord Electronically Signed: Alexey De Luna MD at 19:04 EDT Reading Location ID and State: [address] [place] [address] Tel , Service support ,
== END | disposition home or self-care (01) ==
LOC: MRI 08:04
PROVIDERS: PCP Internal Medicine; Referring Provider Orthopaedic Surgery Orthopaedic Surgery of the Spine; Visit Provider Orthopaedic Surgery Orthopaedic Surgery of the Spine
DX: M54.12 Radiculopathy, cervical region (principal)
CPT/HCPCS: 72141

== ENCOUNTER 2023-11-30 17:30 | Outpatient (RCR) | payer OTHER, SELFPAY ==
--- NOTE | 2023-11-02 11:14 | HP.PTEVAL_ITS ---
Patient's Visit Information Visit Information Visit Information: IRMA MAX is a 58 year old F referred to Physical Therapy by Dr. George Davies MD with a diagnosis of Cervical Radic and Lumbar radic and R shoulder impingerment. Date of Evaluation: 11/02/23 Physical Therapist: HUDSON Tidwell Visit Plan Frequency: 2x /Week Duration: 2 Months Plan: 2X/ week for 8 weeks for neutral spine core stability, LE strength, postural exercises, R RC strengthening, stretching of the L piriformis, with HEP. May use some MT if needed in Short term. Subjective Subjective: Pt reports that her LBP is very bad. She is afraid to mow the lawn cause her back will hurt so bad and she is afraid that it will hurt her shoulder also. She does not have arthritis in her shoulder. She has full ROM of her R shoulder but it hurts. The MRI of neck does not look like a pinched nerve. MRI of her back and orthopedic said he is hoping that her back will work itself out. Dr wants to avoid surgery if he can. 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 Her shoulder wakes her up at night and she has to keep her arm above her head. She needs to do PT before MRI of R shoulder. She is R handed. She has been seeing pain Dr since June for her L sciatica and then she introduced her neck and R shoulder pain to him. She has pain down her L leg when she stands up, sitting to standing position, and when climbing stairs. She has L upper thigh surface numbness and that has been there since Jun. She is able to sit but might have to change position and it depends on the chair she is in. She had a 3 day training in bad chairs and that started her back pain since October. In the last month her back pain has gotten worse. pain in L buttock and groin and she has numb toes for a few years now. Pt reports that her last round of PT the MT to her buttocks helped. C-spine pain has been around for a long time and has gotten worse and it goes down R arm. She feels that she needs to elevate her arm. At night time she gets pain in the lateral aspect of her R shoulder. She always has midtrap pain all the time. Her shoulder hurts with carrying something heavy. She can not lift something off the floor, driving brings on the pain in her upper arm. sitting without support of her arm also brings on the pain. 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 R shoulder AROM: Full B shoulder AROM R shoulder MMT R shoulder flex 8.8 and L 11.3 R shoulder ABD 9.8 and L 10.8 R shoulder ER 7.4 and L 14.5 with pain on the R + Empty can test on the R for pain + impingement sign on the R Palpation: tenderness under the R acromion for pain C-spine AROM: flexion 100%, Ext 25%, Rot B 75%, 50% B Trunk AROM: flexion 75%, Ext 75&, Rot B 75%, SB B 75% Pt is able to heel and toe raise LE MMT R hip flex 10.5 and L 6.8 R knee ext 22.2 and L 17 R knee flex 15.1 and L 13.5 Patellar DTR 2+/3 B SLR + for pain on the R for pain in the back SLUMP test negative B but just HS tightness Bridges: painful on first one but then a little easier on the second one. She had 3/4 normal ROM She had L piriformis tighter than the R. Balance/Special Test Scores Quick DASH Score: 45.4525 Goals Goal 1:: I HEP Goal Time Frame: 6-8 Weeks Goal 2:: Abolish pain with going from sitting to standing Goal Time Frame: 6-8 Weeks Goal 3:: Increase R shoulder strength (at the time of the eval: R shoulder MMT R shoulder flex 8.8 and L 11.3 R shoulder ABD 9.8 and L 10.8 R shoulder ER 7.4 and L 14.5 with pain on the R) Goal Time Frame: 6-8 Weeks Goal 4:: Increase B piriformis muscle length Goal Time Frame: 6-8 Weeks Goal 5:: Increase LE strength (at the time of the eval: R hip flex 10.5 and L 6.8 R knee ext 22.2 and L 17 R knee flex 15.1 and L 13.5) Goal Time Frame: 6-8 Weeks Rehabilitation Potential Rehabilitation Potential: Good Anticipated Interventions Patient/Client Instruction: Educate patient on: Condition and Plan of Care For the Purpose of:: To decrease pain, To increase ROM, To improve nutrient delivery to tissue, To improve muscle performance and motor function, To improve ability to perform ADL's, To increase tolerance to activity/condition/position, To improve performance and independence with ADL's, To decrease level of supervision to perform tasks, To improve ability of physical actions for home/community/work/leisure, To improve gait and locomotor functions, To improve health of tissue, To decrease soft tissue restriction and To increase flexibility/ROM Therapeutic Exercise to Include: Strength training, Postural training, Flexibilty training, Gait and locomotor training, Neuromotor development, Passive ROM, Active ROM and Scapular Strength/Stabilization For the Purpose of:: To decrease pain, To decrease swelling/inflammation, To increase ROM, To improve nutrient delivery to tissue, To improve muscle performance and motor function, To improve ability to perform ADL's, To increase tolerance to activity/condition/position, To improve performance and independence with ADL's, To decrease level of supervision to perform tasks, To improve ability of physical actions for home/community/work/leisure, To improve gait and locomotor functions, To improve health of tissue, To decrease soft tissue restriction, To increase flexibility/ROM, To improve endurance, To improve balance and To improve safety with gait Functional Training to Include: Gait training For the Purpose of:: To improve gait and locomotor functions Manual Therapy Techniques to Include: Mobilization, Passive ROM and Soft tissue mobilization For the Purpose of:: To decrease pain, To increase ROM, To improve nutrient delivery to tissue, To improve muscle performance and motor function, To improve health of tissue, To decrease soft tissue restriction and To increase flexibility/ROM Text: Thank you for the opportunity to evaluate your patient. For Medicare and Medicare HMO plans, please review the plan of care and approve it. It will need to be FAXED BACK to us at [phone] for Medicare purposes. For Medicare only, by signing this I certify the plan of care. Please let me know if there are questions or concerns regarding this plan of care. Physician Signature: Date:
--- NOTE | 2023-11-30 18:50 | HP.PTDCSUM ---
Discharge Summary D/C summary: It has been my pleasure to treat IRMA MAX referred by Dr. George Davies MD, with the diagnosis of Cervical Radic and Lumbar radic and R shoulder impingerment for a total of 9 visit(s). Discharge Date: 11/30/23 Please see the following information for a summary of their discharge status. Subjective Subjective: The hip and the back is doing a lot better and she knows her exercises and can do those at home. She is not seeing progress in the arm and the shoulder. The massage in the forearm helped the knot a lot. She bought a massage gun and it gives her temp relief. She has to sleep with her R arm over her head at night and she still can not drive because of the pain in the shoulder and forearm. Shoulder and forearm aches just sitting her and always. She had an x-ray of her shoulder and it showed no arthritis. There is no sharp pain involved. Her shoulder pain started out worse at night and now over last 2 months it is worse all day. She has another pain Dr jose and it is in November or December. Pain c-spine pain: Pain Intensity (Out of 10): 0 R shoulder pain: Pain Intensity (Out of 10): 5 back pain: Pain Intensity (Out of 10): 2 L leg pain: Pain Intensity (Out of 10): 2 Overall Improvement % Improvement: 95 Objective Objective/Function: 4/5 R shoulder flex/abd and ER 3-/5 with increase pain LE MMT equal B Pt has pain with stretching her levator on the R. Pt has tender spots along the R medial epicondyle and extensor muscles. She has tender spots at deltoid and bicep muscle belly on the R Goals Goal 1:: I HEP Goal Progress: Goal Met Goal 2:: Abolish pain with going from sitting to standing Goal Progress: Goal Met Goal 3:: Increase R shoulder strength (at the time of the eval: R shoulder MMT R shoulder flex 8.8 and L 11.3 R shoulder ABD 9.8 and L 10.8 R shoulder ER 7.4 and L 14.5 with pain on the R) Goal Progress: Not Progressing Goal 4:: Increase B piriformis muscle length Goal Progress: Goal Met Goal 5:: Increase LE strength (at the time of the eval: R hip flex 10.5 and L 6.8 R knee ext 22.2 and L 17 R knee flex 15.1 and L 13.5) Goal Progress: Goal Met Plan Plan: DC PT back to for her shoulder as she feels that she has had no improvement with the shoulder but 95% with her back. D/C Information Discharge Comments: DC PT to [facility] for stretching and back to Dr for her shoulder as she feels that she has not had any improvement d/c sentence: If there are questions or concerns regarding this patient's physical therapy, please feel free to call me at [phone]. Thank you for the referral of this patient. Sincerely, Darlin Love, MPT Balance/Gait/Functional tests Balance/Special Test Scores Quick DASH Score: 52.2725 Improvement % Improvement: 95
== END 2023-11-30 19:00 | disposition home or self-care (01) ==
LOC: PT 17:30
PROVIDERS: PCP Internal Medicine; Referring Provider Orthopaedic Surgery Sports Medicine; Visit Provider Orthopaedic Surgery Sports Medicine
DX: M54.16 Radiculopathy, lumbar region (principal); M54.12 Radiculopathy, cervical region; M25.811 Other specified joint disorders, right shoulder; M25.511 Pain in right shoulder
CPT/HCPCS: 97110; 97140; 97163; 97530

== ENCOUNTER → 2024-01-12 | Outpatient (CLI) | payer OTHER, SELFPAY ==
--- NOTE | 2024-01-12 10:19 | MRI_ITS ---
STUDY: MRI RIGHT SHOULDER REASON FOR EXAM: Female, 58 years old. RT SHOULDER PAIN, ARM WEAKNESS TECHNIQUE: Standardized fat and water weighted pulse sequences were obtained in all 3 orthogonal planes. COMPARISON: Right shoulder radiographs dated 10/24/2023. FINDINGS: There is a full-thickness tear of the anterior distal supraspinatus tendon, overall measuring 1.5 cm in length (coronal T2 series 7 images 16-18) and 1.4 cm in width (axial PD series 8 image 7). There is mild infraspinatus and subscapularis tendinosis. Normal teres minor tendon. Normal supraspinatus muscle. Normal infraspinatus muscle. Normal subscapularis muscle. Normal teres minor muscle. There is a small glenohumeral joint effusion with fluid communicating into the subacromial-subdeltoid bursa. Normal humeral head and visualized proximal humerus. Normal biceps labral complex. Normal intracapsular long biceps tendon. Normal labrum. Normal capsulo-ligamentous complex. Normal rotator interval. There is hypertrophic acromioclavicular arthrosis, with inferior osteophyte formation, with mild effacement of the supraspinatus myotendinous junction. There is a Type I morphology (flat undersurface), with a neutral orientation. Normal visualized coracohumeral and coracoacromial ligaments. Normal quadrilateral space. Normal axillary space. Normal deltoid muscle. Normal trapezius muscle. MRI/Upper Ext Joint Only(Routine) IMPRESSION: 1.5 x 1.4 cm full-thickness tear of the anterior distal supraspinatus tendon. Mild infraspinatus and subscapularis tendinosis. Hypertrophic acromioclavicular arthrosis, with inferior osteophyte formation, with mild effacement of the supraspinatus myotendinous junction. Small glenohumeral joint effusion with fluid communicating into the subacromial-subdeltoid bursa. Electronically Signed: Melvin Key MD at 11:41 EDT ,
== END | disposition home or self-care (01) ==
LOC: MRI 10:11
PROVIDERS: PCP Internal Medicine; Referring Provider Anesthesiology; Visit Provider Anesthesiology
DX: M25.511 Pain in right shoulder (principal)
CPT/HCPCS: 73221

== ENCOUNTER 2024-02-29 07:04 | Day surgery (SDC) | payer OTHER, SELFPAY ==
[2024-02-29] VITALS (13 sets, daily range): BP systolic 93–135; BP diastolic 54–93; PULSE 54–78; RESP 14–18; TEMP 36.1–36.2; O2SAT 89–100; BMI 35.2
--- NOTE | 2024-02-29 07:18 | EKG12_ITS ---
Test Reason : PRE OP Blood Pressure : / mmHG Vent. Rate : 059 BPM Atrial Rate : 059 BPM P-R Int : 210 ms QRS Dur : 076 ms QT Int : 406 ms P-R-T Axes : 027 039 030 degrees QTc Int : 401 ms Sinus bradycardia with 1st degree A-V block Low voltage QRS Septal infarct , age undetermined Abnormal ECG No previous ECGs available Confirmed by JOSE ALVARADO MD ([id number]), subeditor MICHELLE GUZMÁN ([id number]) on 03/01/2024 9:30:35 AM Referred By: George Davies Confirmed By:JOSE ALVARADO MD
[2024-02-29] MEDS: Lactated Ringers 1,000 ML 15 ML IV ×2 (07:30→11:57)
[2024-02-29 07:50] LABS: Hematocrit 39.1 % (37-47); Hemoglobin 13.1 g/dL (12.0-15.0); Mean Corp Hgb Conc 33.5 g/dL (32-36); Mean Corpuscular Hgb 31.9 pg (27.0-32.0); Mean Corpuscular Volume 95.1 fL (81-99); Mean Platelet Vol. 9.5 fl (6.2-12.0); Platelet Count 173 K/mm3 (150-450); RBC Distribution Width SD 45.6 fl (35.1-43.9); Red Blood Count 4.11 M/mm3 (4.2-5.4); White Blood Count 4.9 K/mm3 (4.4-11.0)
--- NOTE | 2024-02-29 08:11 | PRE.ANES_ITS ---
ASA Classification* ASA Classification ASA Classification: 2 Assessment & Plan Anesthesia* Anesthesia Assessment Anesthesia Assessment: Discussed sedation and/or anesthesia options, risks, benefits, and alternatives with patient/parents/legal guardian/POA. Questions invited. The patient/parents/legal guardian/POA seems to understand and agrees to proceed with anesthesia plan. Reviewed the physical assessment, medical history, allergy history and patient home medications list prior to surgery/procedure/anesthetic and documented any changes. Performed airway and anesthesia risk assessments. Anesthesia Type Anesthesia Type: General (consented for Block) Anesthesia Focused Assessment* Temperature: 97.0 F Pulse Rate: 69 Blood Pressure: 114/79 Respiratory Rate: 18 Pulse Ox: 98 Airway Assessment Mouth opens: >3 cm Mallampati Score: II Focused Labs Anesthesia Preop lab: CBC WBC 4.9 K/mm3 (4.4-11.0) 02/29/24 07:40 RBC 4.11 M/mm3 (4.2-5.4) L 02/29/24 07:40 Hgb 13.1 g/dL (12.0-15.0) 02/29/24 07:40 Hct 39.1 % (37-47) 02/29/24 07:40 Plt Count 173 K/mm3 (150-450) 02/29/24 07:40 CHEMISTRY Potassium 4.2 mmol/L (3.5-5.1) 02/28/23 09:20 Sodium 142 mmol/L (136-145) 02/28/23 09:20 BUN 9 mg/dL (7-18) 02/28/23 09:20 Creatinine 0.69 mg/dL (0.55-1.02) 02/28/23 09:20 Glucose 103 mg/dL (74-106) 02/28/23 09:20 TSH 1.24 uIU/mL (0.358-3.74) 02/28/23 09:20 COAG Pre-Assessment Diagnosis/Proposed Procedure Planned Operative Procedure(s): RIGHT SHOULDER ARTHROSCOPY SUBCROMIAL DECOMPRESSION RTC REPAIR Anesthesia History Anesthesia History - science technicians: Anesthesia History - science technicians Hx Hospitalization No 02/13/24 10:36 Any Problems With Anesthesia No 02/13/24 10:36 Cholinesterase deficiency No 02/13/24 10:36 You/Your Family Experience No 02/13/24 10:36 fever (hyperthermia) with Relationship Recent Exposure to Contagious No 02/29/24 07:31 Disease Does patient have nerve No 02/13/24 10:36 stimulator Patient instructed to have device shut off --Does patient have Pacemaker No 02/29/24 07:31 or ICD? When Was Last Pacemaker Check QUESTION #4 FULL TEXT: You/Your Family Experience fever (hyperthermia) with Anesthesia Last Oral Intake Last Oral intake: Last Oral Intake NPO since 06:00 02/29/24 07:31 Meds taken in AM with sips of Yes 02/29/24 07:31 water? Meds patient instructed to see medlist 02/29/24 07:31 take am of surgery PONV PONV - science technicians: PONV - science technicians Female Yes 02/13/24 10:36 HX of Motion Sickness Yes 02/13/24 10:36 HX of N/V After Surgery No 02/13/24 10:36 Non-Smoker Yes 02/13/24 10:36 Duration of Surgery greater Yes 02/13/24 10:36 than 60 minutes Number of Risk Factors 4 02/13/24 10:36 PONV Score Severe Risk 02/13/24 10:36 Height & Weight Height & Weight: Anesthesia: Height & Weight Height 5 ft 4 in 02/29/24 07:31 Weight: 93 kg 02/29/24 07:31 Body Mass Index (BMI) 35.2 02/29/24 07:31 Respiratory Assessment Respiratory Assessment - science technicians: Respiratory Tract Infection Hx - science technicians Hx Respiratory Tract Infection No 02/13/24 10:36 STOP Sleep Apnea STOP Sleep Apnea - science technicians: STOP Sleep Apnea - science technicians Hx Hypertension Yes: CONTROLLED WITH MED 02/13/24 10:36 Hx Sleep Apnea Yes 02/13/24 10:36 CPAP Yes: ALLERGIC TO MASK/ 02/13/24 10:36 NONCOMPLIANT/MOUTH PIECE BIPAP No 02/13/24 10:36 Do you snore loudly (louder than talking or can be heard Do you often feel tired/ fatigued/ sleepy during daytime? Has anyone observed you stop breathing during sleep? STOP Results Positive 02/13/24 10:36 QUESTION #5 FULL TEXT : Do you snore loudly (louder than talking or can be heard through closed doors)? Tobacco Use History Tobacco Use History - science technicians: Tobacco Use History - science technicians Tobacco Use Smoking Status Never smoker 02/13/24 10:36 Hx Tobacco Use No 02/13/24 10:36 Years Smoking Packs Smoked per Day Smoking Cessation Date was within the last 15 years Hx Smoking Cessation Date Hx Smoking Cessation Counseling Hematologic Medial History Hematologic Hx - science technicians: Hematologic Medical Hx - die grinder Hx of Blood Transfusion No 02/13/24 10:36 Hx of Transfusion in last 3 No 02/13/24 10:36 Months Date of Last Transfusion (if within last 3 months) Ever experience any problems No 02/13/24 10:36 with transfusion(s)? Specify any problems Hx of Preganancy in last 3 No 02/13/24 10:36 Months Nurse Filling Out Transfusion DSCHRIBER 02/13/24 10:36 & Questions: Date: 02/13/24 02/13/24 10:36 Time: 10:38 02/13/24 10:36 Patient unable to answer at this time (ie. confused, unrespo /Reproduction History /Reproductive History - science technicians: /Reproductive Hx- science technicians Hx Now No 02/13/24 10:36 Gestational Age (in weeks): EDC: Hx Hx Para Hx Section SAB No 02/13/24 10:36 Active Medications Active Medications: Current Medications Generic Name Dose Route Start Last Admin Trade Name Freq PRN Reason Stop Dose Admin Cefazolin Sodium 2 gm/ Sodium 110 mls @ 150 mls/hr 02/29/24 09:05 Chloride IV 02/29/24 09:48 PREOP ONE Lactated Ringer's 1,000 mls @ 15 mls/hr 02/29/24 07:30 02/29/24 07:30 IV 15 mls/hr .Q48H JUANIS Administration PFSH Medical History Wears glasses Post-menopausal Depression Anxiety Alcohol use Arthritis Low iron High cholesterol Back pain Migraine headache Heartburn Former smoker CPAP (continuous positive airway pressure) dependence Sciatic leg pain Hx of aortic aneurysm Hypertension History of thyroid nodule Arthrosis of right acromioclavicular joint Right rotator cuff tear Impingement of right shoulder Left shoulder pain Breast mass, right Chest wall mass Breast cancer, right breast Home Medications ?Medication ?Instructions ?Recorded ?Last Taken ?Type atorvastatin 40 mg tablet 40 mg PO DAILY 05/09/20 Unknown History docusate sodium 100 mg capsule 100 mg PO DAILY 05/09/20 Unknown History buspirone 5 mg tablet 5 mg PO DAILY 08/02/22 02/29/24 History cholecalciferol (vitamin D3) 125 125 mcg PO DAILY 08/02/22 Unknown History mcg (5,000 unit) capsule ferrous sulfate 325 mg (65 mg 325 mg PO Q OTHER DAY 08/02/22 Unknown History iron) tablet (Feosol) vitamin B complex (B 1 tab PO DAILY 08/02/22 Unknown History Complex-Vitamin B12 tablet) naproxen 500 mg tablet (Naprosyn) 500 mg PO BID PRN pain #20 tabs 10/28/22 Unknown Rx gabapentin 100 mg capsule 100 mg PO DAILY 08/31/23 02/29/24 History gabapentin 300 mg capsule 300 mg PO QHS 08/31/23 Unknown History rizatriptan 10 mg tablet 10 mg PO ONCE PRN migraine headache 08/31/23 Unknown H istory amlodipine 5 mg-benazepril 20 mg 1 cap PO DAILY 02/13/24 02/29/24 History capsule desvenlafaxine succinate 25 mg 25 mg PO DAILY 02/13/24 02/29/24 History tablet,extended release 24 hr magnesium 200 mg tablet 400 mg PO DAILY 02/13/24 Unknown History Allergy/AdvReac Type Severity Reaction Status Date / Time rubber, unspecified Allergy Severe Other Verified 02/29/24 07:27 shellfish derived Allergy Unknown Anaphylaxis Verified 02/29/24 07:27 adhesive tape AdvReac Unknown PT UNSURE Verified 02/29/24 07:27 OF REACTION Family History Mother DDD (degenerative disc disease) Breast cancer Hypertension Osteoarthritis Brother Lymph node cancer Father Heart disease Surgical History Hx of nasal septoplasty Hx of fusion of cervical spine H/O total hysterectomy H/O partial mastectomy Social History Smoking Status: Never smoker alcohol intake: current substance use type: does not use Review of Systems (Anesthesia) ROS Narrative System reviewed and no additional complaints, except as documented.
--- NOTE | 2024-02-29 08:48 | PCM.HP.STD ---
HPI - General HPI Narrative IRMA MAX, is a 58 F who presents for right shoulder arthroscopy, subacromial decompression, debridement, rotator cuff repair, possible biceps tenodesis. no changes to h and p. rab, post op instructions and narcotic counselling. right shoulder marked. no further questions. ok to proceed. MR#: [id number] Acct: [id number] Name: IRMA MAX Rep #: [id number] : 1965 Provider: Dr. George Davies MD Age/Sex: 58/F Location: [facility] [place] Status: Signed Intake Vital Signs 09/08/2413:36 Height 5 ft 4 in Intake Visit Reasons: RIGHT SHOULDER Chief Complaint: MRI review Accompanied by: Self Is patient in pain?: Yes Pain scale (1-10): 2 Allergies shellfish derived Allergy (Unknown, Verified 02/06/24 10:48) Anaphylaxisadhesive tape Adverse Reaction (Unknown, Verified 02/06/24 10:48) PT UNSURE OF REACTION Medications ?Medication ?Instructions ?Recorded ?Confirmed ?Type atorvastatin 40 mg tablet 40 mg PO QHS 05/09/20 02/06/24 History docusate sodium 100 mg capsule 100 mg PO DAILY 05/09/20 02/06/24 History lisinopril 10 mg tablet 10 mg PO DAILY 05/09/20 02/06/24 History buspirone 5 mg tablet 5 mg PO DAILY 08/02/22 02/06/24 History cholecalciferol (vitamin D3) 125 125 mcg PO DAILY 08/02/22 02/06/24 History mcg (5,000 unit) capsule ferrous sulfate 325 mg (65 mg 325 mg PO Q OTHER DAY 08/02/22 02/06/24 History iron) tablet (Feosol) vitamin B complex (B 1 tab PO DAILY 08/02/22 02/06/24 History Complex-Vitamin B12 tablet) naproxen 500 mg tablet (Naprosyn) 500 mg PO BID PRN pain #20 tabs 10/28/22 02/06/24 Rx duloxetine 20 mg capsule,delayed 20 mg PO DAILY 02/28/23 02/06/24 History release gabapentin 100 mg capsule 100 mg PO DAILY 08/31/23 02/06/24 History gabapentin 300 mg capsule 300 mg PO QHS 08/31/23 02/06/24 History rizatriptan 10 mg tablet mg PO ONCE PRN 08/31/23 02/06/24 History PFSH Medical History Arthrosis of right acromioclavicular joint Right rotator cuff tear Impingement of right shoulder Left shoulder pain Breast mass, right Chest wall mass H/O thyroid nodule Fusion of spine, cervical region Breast cancer, right breast Surgical History H/O total hysterectomy H/O partial mastectomy Family History Mother DDD (degenerative disc disease) Breast cancer Hypertension OsteoarthritisBrother Lymph node cancerFather Heart disease Social History Smoking Status: Never smoker alcohol intake: current substance use type: does not use HPI RIGHT SHOULDER Details: This documentation accurately reflects the service provided and the decisions made by me, Dr. George Davies MD 02/06/24 0966. Part of today?s visit was documented by [ ], acting as scribe. IRMA MAX is a 58 year old F here today for follow-up right shoulder MRI results. last cortisone injection was about 3 months ago. Ortho Exam General General: Yes no acute distress Neurologic: Yes alert and Yes oriented x3 Psychologic: Yes reasonable and appropriate Right Shoulder Skin/Wound: Yes CDI, No ecchymosis, No erythema and No swelling Testing: Positive Hawkin's, Neer's, AROM-Forward Elevation 0-180, AROM-External Rotation at side 0-60, empty can, cross arm and belly press normal; Negative Speed's, TTP Biceps, TTP AC Joint, Drop Arm or scapular winging SHOULDER: normal motor and sens to ax nerve, and MRU and AIN/PIN Forward elevation strength 4+/5 external rotation strength 5/5. Supplemental Info [facility] [address] [place] [address] Upper Ext Joint Only(Routine) MR#: [id number] Acct: [id number] Name: IRMA MAX Rep #: [id number] : 1965 F 58 From: Melvin Key MD PCP: Soheila Valentin MD Status: REG CLI Study: Upper Ext Joint Only(Routine) Date of Exam: 01/12/24 Exam# [id number] Ordering Dr: Tyrel Burton MD STUDY: MRI RIGHT SHOULDER REASON FOR EXAM: Female, 58 years old. RT SHOULDER PAIN, ARM WEAKNESS TECHNIQUE: Standardized fat and water weighted pulse sequences were obtained in all 3 orthogonal planes. COMPARISON: Right shoulder radiographs dated 10/24/2023. FINDINGS: There is a full-thickness tear of the anterior distal supraspinatus tendon, overall measuring 1.5 cm in length (coronal T2 series 7 images 16-18) and 1.4 cm in width (axial PD series 8 image 7). There is mild infraspinatus and subscapularis tendinosis. Normal teres minor tendon. Normal supraspinatus muscle. Normal infraspinatus muscle. Normal subscapularis muscle. Normal teres minor muscle. There is a small glenohumeral joint effusion with fluid communicating into the subacromial-subdeltoid bursa. Normal humeral head and visualized proximal humerus. Normal biceps labral complex. Normal intracapsular long biceps tendon. Normal labrum. Normal capsulo-ligamentous complex. Normal rotator interval. There is hypertrophic acromioclavicular arthrosis, with inferior osteophyte formation, with mild effacement of the supraspinatus myotendinous junction. There is a Type I morphology (flat undersurface), with a neutral orientation. Normal visualized coracohumeral and coracoacromial ligaments. Normal quadrilateral space. Normal axillary space. Normal deltoid muscle. Normal trapezius muscle. MRI/Upper Ext Joint Only(Routine) IMPRESSION: 1.5 x 1.4 cm full-thickness tear of the anterior distal supraspinatus tendon. Mild infraspinatus and subscapularis tendinosis. Hypertrophic acromioclavicular arthrosis, with inferior osteophyte formation, with mild effacement of the supraspinatus myotendinous junction. Small glenohumeral joint effusion with fluid communicating into the subacromial-subdeltoid bursa. Electronically Signed: Melvin Key MD at 11:41 EDT , I independently reviewed the imaging. Concur with radiologist report. The biceps tendon appears a little bit flat and slightly subluxed over the superior aspect of the groove Coding Level of Care Code Off vis,est,level 3 Diagnoses Impingement of right shoulder M25.811 Chronic right shoulder pain M25.511; G89.29 Chronicity: chronic Right rotator cuff tear M75.101 Arthrosis of right acromioclavicular joint M19.011 Assessment and Plan Assessment and Plan (1) Impingement of right shoulder: Status: Acute Plan: 58-year-old female with a small anterior leading edge tear of the supraspinatus tendon. The patient also has signs of impingement syndrome and AC joint arthrosis. There is also evidence of a possible instability of the long head of the biceps. Patient counseled as to the diagnosis prognosis different treatment options including but not limited to rest ice anti-inflammatories activity modification subacromial cortisone injections physical therapy doing nothing as well as arthroscopic surgery possibly including a subacromial decompression debridement rotator cuff repair and distal clavicle excision. Patient has a negative cross body adduction test as well as no pain at the AC joint. The patient had a cortisone injection that was ineffective and they have done physical therapy in the past the patient is ready and desiring a surgical solution. In my hands that would be in the form of a right shoulder arthroscopy, subacromial decompression, debridement, rotator cuff repair, possible biceps tenodesis. They understood wished to go ahead signed the consent form for surgery non-smoker no diabetes. I explained the postoperative recovery 2 to 3 weeks in a sling followed by 3 to 6 months of physical therapy. Pros and cons risks and benefits were discussed with the patient including but not limited to infection, pain, stiffness, bleeding, damage to surrounding structures, neurovascular injury, recurrence or retear, failure or wear of hardware or fixation, instability, fracture, deep vein thrombosis and pulmonary embolism, anesthetic risks, , patient dissatisfaction, need for further surgery and other risks. Patient understood and wished to proceed with surgery, and signed the informed consent documentation. (2) Right shoulder pain: Status: Acute Qualifiers: Chronicity: chronic Qualified Code(s): M25.511 - Pain in right shoulder; G89.29 - Other chronic pain (3) Right rotator cuff tear: Status: Acute (4) Arthrosis of right acromioclavicular joint: Status: Acute [facility] Medical History Wears glasses Post-menopausal Depression Anxiety Alcohol use Arthritis Low iron High cholesterol Back pain Migraine headache Heartburn Former smoker CPAP (continuous positive airway pressure) dependence Sciatic leg pain Hx of aortic aneurysm Hypertension History of thyroid nodule Arthrosis of right acromioclavicular joint Right rotator cuff tear Impingement of right shoulder Left shoulder pain Breast mass, right Chest wall mass Breast cancer, right breast Home Medications ?Medication ?Instructions ?Recorded ?Last Taken ?Type atorvastatin 40 mg tablet 40 mg PO DAILY 05/09/20 Unknown History docusate sodium 100 mg capsule 100 mg PO DAILY 05/09/20 Unknown History buspirone 5 mg tablet 5 mg PO DAILY 08/02/22 02/29/24 History cholecalciferol (vitamin D3) 125 125 mcg PO DAILY 08/02/22 Unknown History mcg (5,000 unit) capsule ferrous sulfate 325 mg (65 mg 325 mg PO Q OTHER DAY 08/02/22 Unknown History iron) tablet (Feosol) vitamin B complex (B 1 tab PO DAILY 08/02/22 Unknown History Complex-Vitamin B12 tablet) naproxen 500 mg tablet (Naprosyn) 500 mg PO BID PRN pain #20 tabs 10/28/22 Unknown Rx gabapentin 100 mg capsule 100 mg PO DAILY 08/31/23 02/29/24 History gabapentin 300 mg capsule 300 mg PO QHS 08/31/23 Unknown History rizatriptan 10 mg tablet 10 mg PO ONCE PRN migraine headache 08/31/23 Unknown History amlodipine 5 mg-benazepril 20 mg 1 cap PO DAILY 02/13/24 02/29/24 History capsule desvenlafaxine succinate 25 mg 25 mg PO DAILY 02/13/24 02/29/24 History tablet,extended release 24 hr magnesium 200 mg tablet 400 mg PO DAILY 02/13/24 Unknown History Allergy/AdvReac Type Severity Reaction Status Date / Time rubber, unspecified Allergy Severe Other Verified 02/29/24 07:27 shellfish derived Allergy Unknown Anaphylaxis Verified 02/29/24 07:27 adhesive tape AdvReac Unknown PT UNSURE Verified 02/29/24 07:27 OF REACTION Family History Mother DDD (degenerative disc disease) Breast cancer Hypertension Osteoarthritis Brother Lymph node cancer Father Heart disease Surgical History Hx of nasal septoplasty Hx of fusion of cervical spine H/O total hysterectomy H/O partial mastectomy Social History Smoking Status: Never smoker alcohol intake: current substance use type: does not use Vital Signs Vital Signs Vital Signs: 02/29/24 07:31 02/29/24 07:31 02/29/24 08:11 Temperature 97.0 F L 97.0 F L Temperature Source Temporal Pulse Rate 69 69 Respiratory Rate 18 18 Respiratory Pattern Normal Blood Pressure 114/79 114/79 Blood Pressure Mean 90 Blood Pressure Source Monitor Blood Pressure Position Semi-Fowlers Blood Pressure Location Left Arm Pulse Ox 98 98 Oxygen Delivery Method Room Air Weight Weight: 205 lb 0.478 oz Body Mass Index (BMI) 35.2 Results Lab / Micro Data 02/29/24 07:40 Labs: Laboratory Results - last 24 hr 02/29/24 07:40: WBC 4.9, RBC 4.11 L, Hgb 13.1, Hct 39.1, MCV 95.1, MCH 31.9, MCHC 33.5, RDW Std Deviation 45.6 H, RDW Coeff of Rafa 13.0, Plt Count 173, MPV 9.5
[2024-02-29] MEDS: Cefazolin 2 GM in 0.9% Normal Saline (100mL Bag) 100 ML IV (09:32)
[2024-02-29] MEDS: Epinephrine (1 mg/ml) 1 MG/ML VIAL (09:32)
--- NOTE | 2024-02-29 11:20 | OP.PCM_ITS ---
Problems Associated Problem List Diagnoses (1) Right shoulder pain: (2) Right rotator cuff tear: (3) Impingement of right shoulder: Report of Operation Date of Procedure: 02/29/24 Pre-Operative Diagnosis: Right shoulder rotator cuff tear impingement syndrome AC joint arthrosis possible biceps tear Post-Operative Diagnosis: Right shoulder impingement syndrome rotator cuff tear SLAP tear Surgery/Procedure Performed:: Right shoulder arthroscopy, subacromial decompression, rotator cuff repair, subacromial incision biceps tenodesis Surgeon: George Davies Type of Anesthesia: Block,Regional and General Anesthesiologist: Maury Brown Estimated Blood Loss (mL): 50 Description of Procedure: Patient brought to the operating room theater. Placed supine on table. General anesthesia induced. 2 g IV Ancef administered prior to the start of procedure. All bony prominences padded. SCDs on the legs. Patient transferred right side up lateral decubitus beanbag positioner axillary roll used. Arm in traction 10 pounds in line with the arm in 45 degrees of abduction. Upper extremity prepped and draped in the usual sterile fashion with chlorhexidine-based prep solution allowing over 3 minutes drying time prior to draping. Preoperative timeout performed to confirm the site patient the surgery. Began by inserting the arthroscope into the intra-articular portion of the shoulder through a standard posterior arthroscopy portal. Did a full diagnostic arthroscopy. Minor grade 1 fraying on the glenoid and humeral head. Subscapularis. Normal. There is a minor synovitis of the undersurface rotator cuff supraspinatus. No loose body axillary recess normal. There is a type II SLAP tear and fraying with tendinosis and thickening of the biceps tendon. I made a standard inside-out anterior localized portal through the rotator interval. I performed an intra-articular biceps tenotomy to perform later for a tenodesis. I marked the anterior leading edge of the rotator cuff tendon where there is a full-thickness small L-shaped tear 1 cm x 1 cm. I then inserted the scope in the subacromial space. I performed a subacromial decompression for 4 mm down to flat margins. I performed removal of the bursa. I used anterolateral an accessory anterolateral cannulas. Identified the mob ility of the tear this is moderately mobile with an L-shaped configuration. I cleaned away the greater tuberosity in that area. I used shaving instruments and power pick instrument for multiple trephination's. I then placed two #2 FiberWire fiber link sutures at the apex and just posterior to the apex. I attached these to a 4.75 mm self punching arthrex swivel lock at the apex of the repair site. This was a little bit stiff was just a few millimeters short of anatomic. Repair was good tissue was good. Solid repair. I also passed in a horizontal mattress fashion 2 interlinked arthrex fiber tack all suture trans rotator cuff anchors to perform a medial row in that area as well for additional fixation. Final arthroscopy pictures were taken and saved onto the system. The initial arthroscopy pictures were unfortunately lost due to patient information not being entered initially but I was able to capture the pictures at the end of the case. I then turned my attention the open part of the procedure. 2 inch incision longitudinal centered at the upper proximal medial aspect of the humerus made over top of the long head subs tendon. Carried the dissection down through skin and subcutaneous tissue achieved meticulous hemostasis. Incised the fascia in line with skin incision. Developed the fascia just distal to the pectoralis major tendon. Identified long head of the biceps tendon delivered this through the incision and shorten the biceps. I used a fiber link suture included with the biceps tension tight unicortical button. Passed through the button. I then drilled a unicortical hole irrigated the bone debris. I then passed the button flipped the button pulled on the free end of the suture to deliver the long head of the biceps to the repair site. This is very solid. Suture cut short wound thoroughly irrigated. Subcutaneous tissue closed with 2-0 Vicryl suture and skin with 3-0 Monocryl. Skin cleaned with wet and dry dressing followed application of Steri-Strips Adaptic 4 x 4 gauze ABD dressing and cloth tape despite the patient's tape allergy had to place some tape to hold the dressing in place. Sling placed the upper extremity patient woken up from a general anesthetic transferred off the operating table and taken postanesthetic care unit in stable condition. All sponge and needle instrument counts were correct no complications. CPT 37307, 53956, 53710 Complications none Admit VTE Documentation VTE Present on Admission: No VTE Mechan Device Prophylaxis: SCD's VTE Pharm Prophylaxis ordered?: No Reason prophylaxis not ordered:: Treatment Not Indicated Procedures Musculoskeletal [id number]-29xxx: Other Procedure See Report
--- NOTE | 2024-02-29 11:30 | EX.PCM.DISCH ---
Discharge Instructions Diet Discharge Diet: No restrictions Activity Ice area for (Minutes): 10 Additional Activity Instructions:: sling prn, take breaks 4x/day, hand wrist elbow rom prn Dressing / Incision Call your doctor if your incision/area has: Continuous Slow Oozing, Sudden Increased Bleeding, Increased Pain/ Swelling, Increased Redness, Foul Smelling Discharge and Swelling at the incision site Call your doctor if you observe: Fever of 101 or Higher, Coldness, Increased Pain and Numbness or Tingling Cleanse incision/area with: Do not get Incision Wet Follow Up Care Please Follow Up With: George Davies MD When: 2 days Test Results: Test results from this visit will be discussed in further detail at your follow-up appointment, if applicable. Discharge Plan Admission Attending Provider: George Davies Primary Care Provider: Soheila Valentin Instructions Patient Instructions: After Shoulder Arthroscopy Print Language: [place] Discharge Orders/Prescriptions Prescriptions: New oxycodone-acetaminophen [Endocet] 5-325 mg tablet 1 tab PO Q4H MDD 6 PRN (Reason: pain) 5 Days Qty: 30 0RF No Action buspirone 5 mg tablet 5 mg PO DAILY cholecalciferol (vitamin D3) 125 mcg (5,000 unit) capsule 125 mcg PO DAILY ferrous sulfate [Feosol] 325 mg (65 mg iron) tablet 325 mg PO Q OTHER DAY vitamin B complex [B Complex-Vitamin B12] Tablet 1 tab PO DAILY gabapentin 100 mg capsule 100 mg PO DAILY gabapentin 300 mg capsule 300 mg PO QHS rizatriptan 10 mg tablet 10 mg PO ONCE PRN (Reason: migraine headache) atorvastatin 40 MG tablet 40 mg PO DAILY docusate sodium 100 MG capsule 100 mg PO DAILY naproxen [Naprosyn] 500 mg tablet 500 mg PO BID PRN (Reason: pain) Qty: 20 0RF desvenlafaxine succinate 25 mg tablet extended release 24 hr 25 mg PO DAILY amlodipine-benazepril 5-20 mg capsule 1 cap PO DAILY magnesium 200 mg tablet 400 mg PO DAILY Referrals / Follow Up: Soheila Valentin MD [Primary Care Provider] - George Davies MD [Med Staff - Active Staff] - Disposition Disposition (needs filled in before D/C Order can be placed): Home, Self Care
--- NOTE | 2024-02-29 11:32 | PCM.POST.ANE ---
Anesthesia: Postop Eval I Current Vital Signs Temperature: 97.1 F Pulse Rate: 62 Blood Pressure: 117/72 Respiratory Rate: 16 Pulse Ox: 96 Oxygen Delivery Method: Nasal Cannula Oxygen Flow Rate (L/min): 2 Assessment Airway patent: Yes Spontaneous unlabored respirations: Yes Mental status: Awake and Calm nausea: No Vomiting: No Anesthesia Complication: No Fluid Hydration Crystalloid volume administer (ml): 1,000 Total IV fluid infused: 1,000 Progress Note Anesthesia document: Postop Eval 1 completed: Yes
--- NOTE | 2024-02-29 12:40 | POSTOPAN2_ITS ---
Anesthesia Postop Eval I Sum Postop Eval Completion status Anesthesia document: Postop Eval 1 completed: Yes Anesthesia Postop Eval I Summary Anesthesia Postop Eval I Summary: Anesthesia Postop Eval I: Assessment Summary Airway patent Yes 02/29/24 12:01 MUSIC COMPOSITION [email or web address].[email or web address] Spontaneous unlabored Yes 02/29/24 12:01 MUSIC COMPOSITION TEACHER.[email or web address] respirations Mental status Awake,Calm 02/29/24 12:01 MUSIC COMPOSITION [email or web address].[email or web address] nausea No 02/29/24 12:01 MUSIC COMPOSITION TEACHER.[email or web address] Vomiting No 02/29/24 12:01 MUSIC COMPOSITION TEACHER.[email or web address] Anesthesia Postop Eval I: Fluid Summary Crystalloid volume administer 1,000 02/29/24 12:01 MUSIC COMPOSITION TEACHER.[email or web address] (ml) Colloids volume administered ( ml) Blood Product volume administered (ml) Total IV fluid infused 1,000 02/29/24 12:01 MUSIC COMPOSITION TEACHER.[email or web address] Anesthesia Postop Eval I: Summary Notes Anesthesia Complication No 02/29/24 12:01 MUSIC COMPOSITION TEACHER.TOMY Anesthesia Complication Comment: Post-operative progress note Anesthesia: Postop Eval II Evaluation Mental status: Awake Pain Level: 0 nausea: No Vomiting: No
--- NOTE | 2024-02-29 12:40 | PCM.POSTANE2 ---
Anesthesia Postop Eval I Sum Postop Eval Completion status Anesthesia document: Postop Eval 1 completed: Yes Anesthesia Postop Eval I Summary Anesthesia Postop Eval I Summary: Anesthesia Postop Eval I: Assessment Summary Airway patent Yes 02/29/24 12:01 [email or web address] [email or web address].[email or web address] Spontaneous unlabored Yes 02/29/24 12:01 YOGA [email or web address].[email or web address] respirations Mental status Awake,Calm 02/29/24 12:01 YOGA TEACHER.[email or web address] nausea No 02/29/24 12:01 YOGA [email or web address].[email or web address] Vomiting No 02/29/24 12:01 YOGA [email or web address].[email or web address] Anesthesia Postop Eval I: Fluid Summary Crystalloid volume administer 1,000 02/29/24 12:01 [email or web address] [email or web address] (ml) Colloids volume administered ( ml) Blood Product volume administered (ml) Total IV fluid infused 1,000 02/29/24 12:01 YOGA [email or web address].[email or web address] Anesthesia Postop Eval I: Summary Notes Anesthesia Complication No 02/29/24 12:01 YOGA [email or web address].[email or web address] Anesthesia Complication Comment: Post-operative progress note Anesthesia: Postop Eval II Evaluation Mental status: Awake Pain Level: 0 nausea: No Vomiting: No
== END 2024-02-29 13:59 | disposition home or self-care (01) ==
LOC: SDC 07:05 → AC 07:06
PROVIDERS: Anesthesiology; PCP Internal Medicine; Referring Provider Orthopaedic Surgery Sports Medicine; Visit Provider Orthopaedic Surgery Sports Medicine
PROC: (CPT 29805; principal; 2024-02-29 08:45)
DX: M75.101 Unspecified rotator cuff tear or rupture of right shoulder, not specified as traumatic (principal); I10 Essential (primary) hypertension; E78.00 Pure hypercholesterolemia, unspecified; M25.811 Other specified joint disorders, right shoulder; M19.011 Primary osteoarthritis, right shoulder; S43.431A Superior glenoid labrum lesion of right shoulder, initial encounter; X58.XXXA Exposure to other specified factors, initial encounter; G89.29 Other chronic pain; F32.A Depression, unspecified; F41.9 Anxiety disorder, unspecified; Z79.899 Other long term (current) drug therapy; Z87.891 Personal history of nicotine dependence
CPT/HCPCS: 29826; 29827; 23430; 01630; 85027; 93005; C1713; J7120; J2405

== ENCOUNTER → 2024-08-29 | Outpatient (CLI) | payer OTHER, SELFPAY ==
--- NOTE | 2024-08-29 09:57 | BI_ITS ---
PROCEDURE: SCRN MAMM (CAD)W/VALERI BILAT REASON FOR EXAM: F, Age 58 y/o , SCREENING. Personal history of breast cancer. Mother with breast cancer. TECHNIQUE: Bilateral screening digital breast tomosynthesis with 2D and 3D images. Computer aided detection. COMPARISON: Prior exam(s) dating back to July 20, 2023.. FINDINGS: There are scattered areas of fibroglandular density. The patient is status post lumpectomy in the deep upper lateral aspect of the right breast with resultant postoperative scarring and dystrophic and suture calcification. This is unchanged. No suspicious masses, areas of developing architectural distortion, or suspicious calcifications. BI/SCRN MAMM (CAD)W/VALERI BILAT IMPRESSION: BI-RADS 2: BENIGN. RECOMMEND ANNUAL MAMMOGRAPHIC SCREENING. Follow-up code: Routine Follow-up The patient will be notified of the results by letter. Reading Location: [place] [address]
== END | disposition home or self-care (01) ==
LOC: OPBI 09:55
PROVIDERS: PCP Internal Medicine; Referring Provider Hospitalist; Visit Provider Hospitalist
DX: Z12.31 Encounter for screening mammogram for malignant neoplasm of breast (principal)
CPT/HCPCS: 77063; 77067